=== PATIENT | male | born 1950 | race Caucasian/White ===

== ENCOUNTER → 2019-04-26 16:46 | Outpatient (CLI) | payer MEDICARE, BC, SELFPAY ==
--- NOTE | 2019-04-26 16:58 | XR_ITS ---
PROCEDURE: XR KNEE LT 3V CLINICAL INDICATION: PAIN Lateral knee pain COMPARISON: KNEE3L KNEE-3 VIEWS-LT from 08/28/2015 FINDINGS: There are moderate osteoarthritic changes greater at the medial compartment and patellofemoral joint. Bony spurring is present at the intercondylar region and tibial spine area. There is a loose body along the medial aspect of the lateral compartment measuring approximately 7 mm. Vascular calcification is noted. There is a small suprapatellar effusion. Other findings:None. IMPRESSION: Osteoarthritis with knee joint effusion bony spurring and small loose body Dictated by: Obed Bullock MD 04/26/2019 18:00 Electronically signed by Obed Bullock MD in [place] 04/26/2019 18:00
== END ==
PROVIDERS: PCP Family Medicine; Visit Provider Family Medicine
DX: S83.422A Sprain of lateral collateral ligament of left knee, initial encounter (principal)
CPT/HCPCS: 73562

== ENCOUNTER → 2019-05-22 09:32 | Outpatient (CLI) | payer MEDICARE, BC, SELFPAY ==
--- NOTE | 2019-05-22 09:37 | XR_ITS ---
PROCEDURE: XR KNEE LT 4V CLINICAL INDICATION: left knee pain Chronic knee pain COMPARISON: KNEE3L KNEE-3 VIEWS-LT from 08/28/2015 XR KNEE LT 3V from 04/26/2019 FINDINGS: No fracture or dislocation. No lytic or blastic change. There is normal mineralization. There are severe osteoarthritic changes of the medial compartment with mild osteoarthritic change of the lateral compartment and patellofemoral joint. Small suprapatellar effusion suspected. Other findings:None. IMPRESSION: Osteoarthritic changes most severe at the medial compartment Dictated by: Obed Bullock MD 05/22/2019 10:23 Electronically signed by Obed Bullock MD in [place] 05/22/2019 10:23
== END ==
PROVIDERS: PCP Family Medicine; Visit Provider Orthopaedic Surgery
DX: M25.562 Pain in left knee (principal)
CPT/HCPCS: 73564

== ENCOUNTER → 2020-05-31 13:24 | Outpatient (CLI) | payer MEDICARE, BC, SELFPAY ==
--- NOTE | 2020-05-31 13:29 | XR_ITS ---
PROCEDURE: XR KNEE LT 4V CLINICAL INDICATION: LT knee pain COMPARISON: CR KNEE3L KNEE-3 VIEWS-LT from 08/28/2015 CR XR KNEE LT 3V from 04/26/2019 CR XR KNEE LT 4V from 05/22/2019 FINDINGS: No fracture or dislocation. No lytic or blastic change. There is normal mineralization. There are moderate osteoarthritic changes of the medial compartment with mild osteoarthritis of the lateral compartment and patellofemoral joint. Suprapatellar effusion is present. There is some generalized vascular calcification. Other findings:None. IMPRESSION: Moderate osteoarthritic changes not significantly changed Dictated by: Obed Bullock MD 05/31/2020 15:25 Obed Bullock MD in [place] 05/31/2020 15:25
--- NOTE | 2020-05-31 14:15 | XR_ITS ---
PROCEDURE: XR KNEE RT 4V CLINICAL INDICATION: BL knee pain Right knee pain COMPARISON: CR KNEE3L KNEE-3 VIEWS-LT from 08/28/2015 CR XR KNEE LT 3V from 04/26/2019 CR XR KNEE LT 4V from 05/22/2019 CR XR KNEE LT 4V from 05/31/2020 FINDINGS: No fracture or dislocation. No lytic or blastic change. There is normal mineralization. There are utea-nu-bmeljiga osteoarthritic changes at the medial compartment and patellofemoral joint with mild osteoarthritis of the lateral compartment. Other findings:None. IMPRESSION: Gghy-zw-ioedpwmw osteoarthritis Dictated by: Obed Bullock MD 05/31/2020 15:20 Obed Bullock MD in [place] 05/31/2020 15:20
== END ==
PROVIDERS: PCP Family Medicine; Visit Provider Orthopaedic Surgery
DX: M17.12 Unilateral primary osteoarthritis, left knee (principal); M17.11 Unilateral primary osteoarthritis, right knee
CPT/HCPCS: 73564

== ENCOUNTER 2020-10-15 12:40 | Emergency (ER) | payer MEDICARE, BC, SELFPAY ==
[2020-10-15 12:42] VITALS: BP 181/81; PULSE 58; RESP 20; TEMP 36.9; O2SAT 96; BMI 40.6
--- NOTE | 2020-10-15 12:43 | ECG_ITS ---
APPROVED REPORT Exam: Resting ECG HR:58 bpm ECG Measurements Heart Rate 58 AXES MT 194 P 27 QRSd 80 QRS 23 QT 428 T 49 QTc 420 Conclusion Sinus bradycardia Otherwise normal ECG Electronically signed by : Sumit Smith, 10/15/2020 19:34:58
--- NOTE | 2020-10-15 12:46 | HMH.EDGENADL ---
ED Disposition Clinical Impression: Intraparenchymal hemorrhage of brain Hypertension Qualifiers: Hypertension type: unspecified Qualified Code(s): I10 - Essential (primary) hypertension Disposition: Xfer Short-Term Hosp Condition on Discharge: Good Referrals: Danis Sam MD [Primary Care Provider] - Time of Disposition: 13:37 - Critical Care Critical Care Time: Yes Attestation: On , the high probability of a clinically significant, sudden or life threatening deterioration of the following system(s) required my full and direct attention, intervention and personal management. The time I documented below is in addition to time spent performing reported procedures but includes the following listed in this critical care notation. Total Critical Care Time: 65 Vital system(s) involved:: Central Nervous System My critical care processes included: Assessment & monitoring of V/S, Initial and Re-exams, Data Review/Interpretation, Coordinating Care, Medication Orders and management, Documentation Medical Decision Making - Ja Inquiry Pt receiving controlled substance: No Vital Signs: 10/15/20 12:42 Temperature 98.4 F Temperature Source Oral Pulse Rate [Left Radial] 58 L Respiratory Rate 20 Blood Pressure [Right Arm] 181/81 H Blood Pressure Mean [Right Arm] 114 Blood Pressure Source [Right Arm] Automatic Cuff Blood Pressure Position [Right Arm] Sitting 02 Sat by Pulse Oximetry 96 Oxygen Delivery Method Room Air - Lab Data Lab results reviewed: Yes: I reviewed the patient's lab results. Lab Results 10/15/20 12:45: WBC 9.4, RBC 4.92, Hgb 14.6, Hct 45.9, MCV 93.4, MCH 29.7, MCHC 31.8, RDW 14.6, Plt Count 181, MPV 10.4, Neut % (Auto) 74.1, Lymph % (Auto) 16.4, Reeves % (Auto) 6.0, Eos % (Auto) 2.9, Baso % (Auto) 0.6, Neut # (Auto) 7.0, Lymph # (Auto) 1.6, Reeves # (Auto) 0.6, Eos # (Auto) 0.3, Baso # (Auto) 0.1 10/15/20 12:45: Sodium 144, Potassium 4.6, Chloride 104, Carbon Dioxide 32 H, Anion Gap 12.6, BUN 25 H, Creatinine 1.60 H, Estimated GFR 43 L, Est GFR ( Amer) 52 L, Glucose 148 H, Calcium 9.7, Total Bilirubin 0.4, AST 22, ALT 15, Alkaline Phosphatase 86, Total Protein 7.9, Albumin 4.6, Globulin 3.3 H, Albumin/Globulin Ratio 1.4 Result diagrams: 10/15/20 12:45 10/15/20 12:45 Orders (Tests/Meds): ED MEDICATIONS Discontinued Medications Generic Name Dose Route Start Last Admin Trade Name Sue PRN Reason Stop Dose Admin Hydralazine HCl 2.5 mg 10/15/20 13:26 10/15/20 13:27 Hydralazine 20mg/Ml Vial IV 10/15/20 13:27 2.5 mg ONCE ONE Administration ORDERS Category Date Time Status PT/INR [Prothrombin Time INR] Stat Lab 10/15/20 13:25 Received Urinalysis and Microscopic Stat Lab 10/15/20 12:55 Ordered - CT Data CT Scan: Head Time Received: 13:[address] Reviewed: Yes: I discussed the CT results w/the radiologist Preliminary Findings: Abnormal Findings Narrative: Left basal ganglia ICH Medical Decision Narrative: 70yo M evaluated for right lower extremity deficit. Patient in no acute distress on initial evaluation. He is noted to be hypertensive but denies any pain. Patient's presenting signs and symptoms are concerning for acute stroke. He is sent to CT scan for noncontrasted study. Dr. Huston calls with report of left basal ganglion spontaneous bleed. No midline shift, no involvement of the ventricles. Patient's blood pressure remains elevated 180s over 80. Case discussed with Dr. Kumari of neurosurgery at the [facility]. He accepts the patient in transfer. Helicopter has been arranged. Goal blood pressure is less than 140 systolic. General Adult HPI - General Stated complaint: Weakness Time Seen by Provider: 10/15/20 12:46 Mode of Arrival: Wheelchair - History of Present Illness HPI narrative: 70yo M presents the emergency department secondary to right lower extremity weakness and numbness. Patient reports he went to bed at 1230 at that
--- NOTE | 2020-10-15 12:53 | CT_ITS ---
PROCEDURE: CT HEAD/BRAIN WO CON CLINICAL INDICATION: RLE weakness/paresthesia COMPARISON: CT HDWO CT HEAD W/O CONTRAST from 09/05/2016 TECHNIQUE: Axial images obtained. All CT scans at the facility use one or more dose reduction, viz: automated exposure control, ma/kV adjustment per patient size (including targeted exams where dose is matched to indication, i.e. head), or iterative reconstruction technique. FINDINGS: Acute hemorrhage is present in the left thalamus extending into the basal ganglia basal ganglia and jessica radiata . This area of hemorrhage measures approximately 3.4 by 1.6 cm . Hemorrhage extends into the body the left lateral ventricle with some blood layering within the occipital horn of the left lateral ventricle. No midline shift is evident. No hydrocephalus. Unremarkable appearing calvarium. No mastoid effusion or sinus air-fluid level. IMPRESSION: Acute intraparenchymal hemorrhage involves the left basal ganglia extending into the thalamus and left jessica radiata also with extension into the body of the left lateral ventricle with a small amount blood layering in the occipital horn of the left lateral ventricle. Hypertensive hemorrhage with intraventricular extension is considered. Not typical for appearance for ruptured aneurysm however that entity is not excluded. Significant findings called to Dr. Lainez in the emergency room 10/15/2020 at 1:15 p.m. Dictated by: Obed Bullock MD 10/15/2020 13:24 Obed Bullock MD in [place] 10/15/2020 13:24
[2020-10-15 13:02] LABS: Basophils # 0.1 K/mm3 (0-0.2); Basophils % 0.6 % (0.1-2.0); Eosinophils # 0.3 K/mm3 (0.0-0.4); Eosinophils % 2.9 % (0.1-12.0); Hematocrit 45.9 % (42.0-52.0); Hemoglobin 14.6 g/dL (14.1-18.0); Lymphocytes # 1.6 K/mm3 (0.7-4.5); Lymphocytes % 16.4 % (10-50); Mean Corpuscular HGB Conc 31.8 g/dL (31.8-35.4); Mean Corpuscular Hemoglobin 29.7 pg (27.0-31.2); Mean Corpuscular Volume 93.4 fl (80-94); Mean Platelet Volume 10.4 fl (7.4-10.4); Monocytes # 0.6 K/mm3 (0.1-1.0); Neutrophils % 74.1 % (37.0-80.0); Platelet Count 181 K/mm3 (142-424); Red Blood Count 4.92 M/mm3 (4.60-6.20); Red Cell Distribution Width 14.6 % (11.5-17.5); White Blood Count 9.4 K/mm3 (4.8-10.8)
[2020-10-15 13:05] LABS: Chloride 104 mmol/L (98-107); Potassium 4.6 mmoL/L (3.5-5.1); Sodium 144 mmol/L (136-145)
[2020-10-15 13:08] LABS: Alanine Aminotransferase 15 U/L (12-78); Albumin Level 4.6 g/dl (3.5-5.0); Albumin/Globulin Ratio 1.4 (1.1-1.8); Alkaline Phosphatase 86 U/L (38-126); Anion Gap 12.6 mEq/L (5-15); Aspartate Amino Transferase 22 U/L (17-59); Bilirubin,Total 0.4 mg/dl (0.2-1.3); Blood Urea Nitrogen 25 mg/dl (9-20); Calcium 9.7 mg/dl (8.4-10.2); Carbon Dioxide 32 mmol/L (22.0-30.0); Estimated Glomerular Filt Rate 43 ml/min (>60); GFR (African American) 52 ML/MIN (>60); Globulin 3.3 g/dL (1.3-3.2); Glucose 148 mg/dl (74-100); Total Protein,Serum 7.9 g/dl (6.3-8.2)
--- NOTE | 2020-10-15 13:27 | PC.NURSE ---
MD Lainez consulting with at this time regarding critical ct findings.
[2020-10-15 13:46] LABS: INR 0.97 (0.9-1.1); Prothrombin Time 11.5 seconds (9.4-11.8)
[2020-10-15 14:01] VITALS: BP 164/81; PULSE 58; RESP 20; TEMP 36.7; O2SAT 96
== END 2020-10-15 14:01 | disposition short-term general hospital (02) ==
PROVIDERS: Emergency Provider Family Medicine; PCP Family Medicine
DX: I61.9 Nontraumatic intracerebral hemorrhage, unspecified (principal); I10 Essential (primary) hypertension; I48.91 Unspecified atrial fibrillation; E10.65 Type 1 diabetes mellitus with hyperglycemia; E78.5 Hyperlipidemia, unspecified; F41.9 Anxiety disorder, unspecified; Z87.442 Personal history of urinary calculi; Z79.899 Other long term (current) drug therapy
CPT/HCPCS: 70450; 80053; 85025; 85610; 93005; 96374; 96375; 99283

== ENCOUNTER → 2020-12-12 13:08 | Outpatient (CLI) | payer MEDICARE, BC, SELFPAY ==
--- NOTE | 2020-12-12 13:14 | XR_ITS ---
PROCEDURE: XR KNEE LT 4V CLINICAL INDICATION: LT knee pain COMPARISON: CR XR KNEE LT 3V from 04/26/2019 CR XR KNEE LT 4V from 05/22/2019 CR XR KNEE LT 4V from 05/31/2020 CR XR KNEE RT 4V from 05/31/2020 FINDINGS: Tricompartmental degenerative changes of the knee joint are noted with the subchondral sclerosis, loss of joint space, predominantly in the medial compartment and osteophyte formation. Small suprapatellar joint effusion. No acute fractures or dislocations. Prominence of the intercondylar tubercles are noted. Bone density is normal. No significant soft tissue abnormality is noted. IMPRESSION: No acute fractures or dislocations. Tricompartmental degenerative changes. Suprapatellar joint effusion. Dictated by: Daniela Black 12/12/2020 15:00 Daniela Black in [place] 12/12/2020 15:00
== END ==
PROVIDERS: PCP Family Medicine; Visit Provider Orthopaedic Surgery
DX: M25.562 Pain in left knee (principal)
CPT/HCPCS: 73564

== ENCOUNTER 2021-05-02 12:03 | Emergency (ER) | payer MEDICARE, BC, SELFPAY ==
[2021-05-02 12:04] VITALS: BP 140/74; PULSE 62; RESP 18; TEMP 36.7; O2SAT 94; BMI 38.9
[2021-05-02 12:19] VITALS: BP 140/74; PULSE 61; RESP 18; O2SAT 95
--- NOTE | 2021-05-02 12:28 | XR_ITS ---
PROCEDURE: XR CHEST 2V CLINICAL HISTORY: possibly swallowed tooth COMPARISON: CR CXR CHEST(2 VIEWS-NOT PORTABLE) from 02/28/2016 CR CXR CHEST(2 VIEWS-NOT PORTABLE) from 09/05/2016 CR XR SOFT TISSUE NECK from 05/02/2021 FINDINGS: Cardiomegaly without failure. There has been a prior median sternotomy. There are low lung volumes with increased density along the left heart border which may be related to the poor inspiration. No definite radiopaque foreign body evident that would represent a tooth. Very slight increased density of the left and superior aspect the T9 vertebral body. This is not as dense as 1 would expect for a to the specially if it contained amalgam. No acute bony abnormalities. IMPRESSION: No definite radiopaque foreign body that would represent a tooth. Cardiomegaly with poor inspiration. Dictated by: Obed Bullock MD 05/02/2021 13:34 Obed Bullock MD in [place] 05/02/2021 13:34
--- NOTE | 2021-05-02 12:28 | XR_ITS ---
PROCEDURE: XR SOFT TISSUE NECK CLINICAL INDICATION: Possibly swallowed tooth COMPARISON: CT CT HEAD/BRAIN WO CON from 10/15/2020 FINDINGS: No radiopaque foreign body is evident. Calcification is present at the posterior horn of the thyroid cartilage. There is also calcification overlying the base of the tongue on the lateral view possibly within the carotid arteries versus calcified crypts within the lingual tonsils. Degenerative changes are present in the cervical spine.. IMPRESSION: No radiopaque foreign body evident. Dictated by: Obed Bullock MD 05/02/2021 13:04 Obed Bullock MD in [place] 05/02/2021 13:04
--- NOTE | 2021-05-02 12:30 | PC.NURSE ---
Notified RAD of xray orders
--- NOTE | 2021-05-02 12:39 | PC.NURSE ---
Pt to RAD
--- NOTE | 2021-05-02 12:39 | PC.NURSE ---
pt taken by rad
--- NOTE | 2021-05-02 14:12 | HMH.EDGENADL ---
ED Disposition Clinical Impression: Esophageal abrasion Qualifiers: Encounter type: initial encounter Qualified Code(s): S27.818A - Other injury of esophagus (thoracic part), initial encounter Disposition: Home, Self-Care Condition on Discharge: Good Instructions: DI for Acute Pain -- Adult Additional Instructions: see pcp and recheck if needed Referrals: Maria Fernanda Kohler APRN [Primary Care Provider] - - Critical Care Critical Care Time: No Attestation: On 05/02/21, the high probability of a clinically significant, sudden or life threatening deterioration of the following system(s) required my full and direct attention, intervention and personal management. The time I documented below is in addition to time spent performing reported procedures but includes the following listed in this critical care notation. Medical Decision Making - Medical Records Medical records reviewed: Yes: I reviewed the patient's medical records. - Ja Inquiry Pt receiving controlled substance: No Vital Signs: 05/02/21 12:04 05/02/21 12:19 Temperature 98.1 F Temperature Source Oral Pulse Rate 61 Pulse Rate [Left Radial] 62 Respiratory Rate 18 18 Blood Pressure 140/74 Blood Pressure [Left Arm] 140/74 Blood Pressure Mean 92 Blood Pressure Mean [Left Arm] 96 Blood Pressure Source [Left Arm] Automatic Cuff Blood Pressure Position [Left Arm] Sitting 02 Sat by Pulse Oximetry 94 L 95 Oxygen Delivery Method Room Air - Radiology Data #1 Image(s): Chest, Other (soft -tissue neck) Image Reviewed: Yes I have reviewed radiologist's interpretation Preliminary Findings: Normal/NAD Medical Decision Narrative: no def fb seen and stable exam General Adult HPI - General Chief complaint: PAIN Stated complaint: chest XR, congestion Time Seen by Provider: 05/02/21 13:00 Mode of Arrival: Wheelchair Source of Information: Patient Limitations: No Limitations Description of Symptoms (Recalled from ER Triage Doc. by RN): Pt referred to ED for a CXR after calling PCP. Pt states that while eating last night, he swallowed his tooth, that is part of a partial plate. Pt speaking without difficulty, denies SOA, swallows liquids without difficulty. Pt states that he feels as if the tooth is stuck or he has a scratch when he swallows. - History of Present Illness HPI narrative: possible fb in neck Onset (ago): hour(s) Location: neck Severity: moderate Associated symptoms: denies other symptoms Treatments prior to arrival: none - Related Data Home Medications Medication Instructions Recorded Confirmed allopurinol 100 mg tablet 100 mg PO DAILY 05/22/19 12/12/20 amlodipine 5 mg tablet 5 mg PO DAILY 05/22/19 12/12/20 apixaban 5 mg tablet 5 mg PO BID 05/22/19 12/12/20 aspirin 81 mg tablet,delayed 81 mg PO DAILY 05/22/19 12/12/20 release carvedilol 25 mg tablet 25 mg PO BID 05/22/19 12/12/20 chlorthalidone 25 mg tablet 25 mg PO DAILY 05/22/19 12/12/20 clotrimazole-betamethasone 1 1 applic TOPICAL BID 05/22/19 12/12/20 %-0.05 % topical cream dutasteride 0.5 mg-tamsulosin ER 1 cap PO DAILY 05/22/19 12/12/20 0.4 mg capsule ext.release 24hr mphas glimepiride 2 mg tablet 2 mg PO DAILY 05/22/19 12/12/20 metformin 850 mg tablet 850 mg PO DAILY 05/22/19 12/12/20 montelukast 10 mg tablet 10 mg PO QPM 05/22/19 12/12/20 pregabalin 75 mg capsule 75 mg PO BID 05/22/19 12/12/20 rosuvastatin 20 mg tablet 20 mg PO DAILY 05/22/19 12/12/20 sertraline 50 mg tablet 50 mg PO DAILY 05/22/19 12/12/20 Allergies Allergy/AdvReac Type Severity Reaction Status Date / Time lisinopril [LISINOPRIL] AdvReac Unknown COUGH Verified 12/12/20 13:59 [facility] History - Hepatitis A Screen Drug use history?: No High risk sexual behaviors?: No History of sexually transmitted infection?: No Currently employed?: No Childcare worker?: No Do you have indoor plumbing?: Yes Do you have electricity?: Yes Attestation statement:: Ariela salinas
[2021-05-02 14:42] VITALS: BP 140/74; PULSE 61; RESP 18; TEMP 36.7; O2SAT 95
== END 2021-05-02 14:42 | disposition home or self-care (01) ==
PROVIDERS: Emergency Provider Emergency Medicine; PCP Nurse Practitioner Family
DX: S27.818A Other injury of esophagus (thoracic part), initial encounter (principal)
CPT/HCPCS: 70360; 71046; 99282

== ENCOUNTER 2021-05-05 13:11 | Day surgery (SDC) | payer MEDICARE, BC, SELFPAY ==
[2021-05-05] VITALS (15 sets, daily range): BP systolic 126–146; BP diastolic 61–89; PULSE 53–91; RESP 14–20; TEMP 36.1–36.8; O2SAT 90–95; BMI 38.9
--- NOTE | 2021-05-05 13:52 | HMH.EDGENADL ---
ED Disposition Clinical Impression: Esophageal foreign body Qualifiers: Encounter type: subsequent encounter Qualified Code(s): T18.108D - Unspecified foreign body in esophagus causing other injury, subsequent encounter Disposition: Still a Patient Condition on Discharge: Good Instructions: DI for Skin Abscess Additional Instructions: Per Dr. De Jesus to following procedure Referrals: Danis Sam MD [Primary Care Provider] - (1-2 days) Time of Disposition: 16:17 - Critical Care Critical Care Time: No Attestation: On 05/05/21, the high probability of a clinically significant, sudden or life threatening deterioration of the following system(s) required my full and direct attention, intervention and personal management. The time I documented below is in addition to time spent performing reported procedures but includes the following listed in this critical care notation. Medical Decision Making - Medical Records Medical records reviewed: Yes: I reviewed the patient's medical records. - Ja Inquiry Pt receiving controlled substance: No Vital Signs: 05/05/21 13:14 05/05/21 13:30 05/05/21 14:00 Temperature 98.3 F Temperature Source Oral Pulse Rate 56 L 53 L Pulse Rate [Left Radial] 60 Respiratory Rate 20 16 16 Blood Pressure 129/64 131/63 Blood Pressure [Right Arm] 130/63 Blood Pressure Mean 85 Blood Pressure Mean [Right Arm] 85 Blood Pressure Source [Right Arm] Automatic Cuff Blood Pressure Position [Right Arm] Sitting 02 Sat by Pulse Oximetry 92 L 90 L 91 L Oxygen Delivery Method Room Air Orders (Tests/Meds): ORDERS Category Date Time Status FL upper GI & esophagus w/air Stat Fluoro 05/05/21 15:12 Ordered Medical Decision Narrative: 70yo M evaluated for ongoing subxiphoid pain after he swallowed a tooth on May 02. I reviewed the imaging reports from his previous evaluation. There is no acute finding at that time. No reason to repeat x-rays as tooth or other foreign object did not show up at that time. Case discussed with Dr. De Jesus who request fluoroscopy upper GI series be completed to figure out if this patient needs to go for upper endoscopy. Dr. Bullock called was concerned that the patient did in fact swallowed tooth, it would be masked by contrast. Recommends a CT of the chest without contrast. CT did not show any foreign object, tooth, other obstruction. Case discussed again with Dr. Bullock who is okay with proceeding with a GI series at this time. Dr. Bullock called after the GI series completed to inform you there was in fact a foreign object in the patient's distal esophagus. I called Dr. De Jesus to discuss these findings. Given this object is been in the patient's esophagus for 3 days, Dr. De Jesus plans to proceed with emergent EGD. General Adult HPI - General Chief complaint: Skin/Abscess/Foreign Body Stated complaint: abd pain,fb10 stuck, Time Seen by Provider: 05/05/21 13:30 Mode of Arrival: Wheelchair Limitations: No Limitations Description of Symptoms (Recalled from ER Triage Doc. by RN): c/o belly pain after swallowing a partial tooth on Wednesday believes it is lodged in his abdomen - History of Present Illness HPI narrative: 70yo M presents to the emergency department with concern for having swallowed his tooth. Patient was evaluated on May 02 with the same concern. X-rays were obtained but no foreign object was identified. Patient reports he has been largely intolerant to solid intake since that time. It makes him nauseated he vomits. He reports he is tolerating thin liquids and can take his medications but has to take them 1 or 2 at a time. He still has a sensation of a foreign object in his distal esophagus/upper stomach. Never undergone endoscopy previously. - Related Data Home Medications Medication Instructions Recorded Confirmed allopurinol 100 mg tablet 100 mg PO DAILY 05/22/19 12/12/20 amlodipine 5 mg tablet 5 mg PO DAILY 05/22
--- NOTE | 2021-05-05 13:56 | PC.NURSE ---
speaking with Dr Gardner at this time.
--- NOTE | 2021-05-05 14:01 | PC.NURSE ---
Notified rad of Fluro Upper GI order
--- NOTE | 2021-05-05 14:18 | CT_ITS ---
PROCEDURE: CT CHEST WO CON CLINICAL INDICATION: fb Foreign body evaluation COMPARISON: No exams were available for comparison TECHNIQUE: Axial images obtained with sagittal and coronal reformats. All CT scans at the facility use one or more dose reduction, viz: automated exposure control, ma/kV adjustment per patient size (including targeted exams where dose is matched to indication, i.e. head), or iterative reconstruction technique. FINDINGS: Unenhanced exam is obtained of the chest and upper abdomen. No radiopaque esophageal foreign body is evident.. There is slight increased density within the lumen the distal esophagus which could be due to some residual bismuth containing medication or even acute hemorrhage. There is some mild thickening of the esophagus at this region. No pneumomediastinum. No there is some minimal stranding of the mediastinal fat at this area of thickening and central hyperdensity. There has been a prior CABG. Severe coronary artery calcification is noted. There is elevation of the right hemidiaphragm. There is mild right basilar atelectasis. Minimal atelectatic changes are present in the lingula. There are trace bilateral effusions Upper abdominal images demonstrates bilateral renal cysts. There is a hyperdense nodule involving the right kidney medially and could represent hemorrhagic or proteinaceous cyst measuring 18 mm with a density of 42 Hounsfield units. Cholelithiasis suspected. IMPRESSION: 1. No radiopaque foreign body apparent within the esophagus. 2. There is some hyperdensity within the lumen which conforms to the lumen in the distal esophagus just proximal to the GE junction which could represent hemorrhage. There is some mild esophageal thickening at this region and minimal stranding of the mediastinal fat at this area suggesting underlying inflammation. No pneumomediastinum apparent. 3. Bilateral renal cysts. A 10 mm hyperdense nodule of the right kidney indeterminate. Nonemergent ultrasound may determine cystic or solid nature. Dictated by: Obed Bullock MD 05/05/2021 14:58 Obed Bullock MD in [place] 05/05/2021 14:58
--- NOTE | 2021-05-05 15:12 | FL_ITS ---
PROCEDURE: FL UPPER GI ESOPHAGUS W/AIR CLINICAL INDICATION: Foreign body evaluation COMPARISON: No exams were available for comparison FINDINGS: There is a persistent filling defect within the distal aspect of the esophagus 6 cm proximal to the GE junction. This filling defect measures 4 cm longitudinal and approximately 15 mm in thickness somewhat C-shaped and could represent a dental apparatus which was swallowed. There was no evidence of extravasation of contrast and no obstruction. There is a tiny hiatal hernia. The stomach and duodenum have an unremarkable appearance. IMPRESSION: Unusual C-shaped filling defect within the distal esophagus which could represent a foreign body such as a dental apparatus. This could also be due to impacted food. No extravasation. No esophageal obstruction. Dictated by: Obed Bullock MD 05/05/2021 16:09 Obed Bullock MD in [place] 05/05/2021 16:09
--- NOTE | 2021-05-05 16:10 | PC.NURSE ---
DR SCHMITZ IN WITH PT , HE IS TAKING HIM FOR EMERGENT EGD
--- NOTE | 2021-05-05 16:16 | HMH.GSHP ---
HPI HPI: Patient is a 70-year-old male. He states that about 3 or 4 days ago he had possibly accidentally swallowed a dental partial plate. He was seen and evaluated in the emergency department on 05/02/2021. He underwent plain imaging including plain x-ray of the neck and chest. This was unremarkable for any calcified or metallic object. Patient was managed as an outpatient. He presented back to the emergency department today with ongoing complaints of occasional indigestion pains and difficulty swallowing. Surgery was contacted. Recommendations were for more specific imaging including possible upper GI series. After contact with radiology he underwent CT scan of the chest initially. There was noted to be a hyperdensity several centimeters proximal to the gastroesophageal junction which is felt to be possibly hemorrhage. This was followed with upper GI series. This reveals a filling defect at this location measuring approximately 4 cm. This information was relayed to surgery and arrangements were made for emergent upper endoscopy. [facility] History I have reviewed the patient's past medical history: Yes Medical History: Reports:: Anxiety, Atrial Fibrillation, Diabetes Mellitus Type 1, Hypertension, Kidney Stones, Transient Ischemic Attacks (TIA) *Have you ever received a pneumonia vaccine?: No *Have you received a flu vaccine this season?: No Other Medical History: Reports: Arthritis Laterality Cases: Bilateral: Other Other Surgeries: Yes: Cardiac Catheterization, Cardiac Surgery - *Social History Smoking Status: Never smoker Alcohol Intake: never *Occupational Status:: retired *Travel in the last 8 weeks: None - Psychiatric History Pschychiatric History:: Reports:: Anxiety Family Hx:: No significant family history Review of Systems - Review of Systems Review of systems:: pertinent systems reviewed and negative unless documented below Meds Home Medications Medication Instructions Recorded Confirmed Type allopurinol 100 mg tablet 100 mg PO DAILY 05/22/19 12/12/20 History amlodipine 5 mg tablet 5 mg PO DAILY 05/22/19 12/12/20 History apixaban 5 mg tablet 5 mg PO BID 05/22/19 12/12/20 History aspirin 81 mg tablet,delayed 81 mg PO DAILY 05/22/19 12/12/20 History release carvedilol 25 mg tablet 25 mg PO BID 05/22/19 12/12/20 History chlorthalidone 25 mg tablet 25 mg PO DAILY 05/22/19 12/12/20 History clotrimazole-betamethasone 1 1 applic TOPICAL BID 05/22/19 12/12/20 History %-0.05 % topical cream dutasteride 0.5 mg-tamsulosin ER 1 cap PO DAILY 05/22/19 12/12/20 History 0.4 mg capsule ext.release 24hr mphas glimepiride 2 mg tablet 2 mg PO DAILY 05/22/19 12/12/20 History metformin 850 mg tablet 850 mg PO DAILY 05/22/19 12/12/20 History montelukast 10 mg tablet 10 mg PO QPM 05/22/19 12/12/20 History pregabalin 75 mg capsule 75 mg PO BID 05/22/19 12/12/20 History rosuvastatin 20 mg tablet 20 mg PO DAILY 05/22/19 12/12/20 History sertraline 50 mg tablet 50 mg PO DAILY 05/22/19 12/12/20 History Allergies Allergy/AdvReac Type Severity Reaction Status Date / Time lisinopril [LISINOPRIL] AdvReac Unknown COUGH Verified 12/12/20 13:59 Exam Vital signs and Labs for Last 24 Hours: Temp Pulse Resp BP Pulse Ox 98.3 F 53 L 16 131/63 91 L 05/05/21 13:14 05/05/21 14:00 05/05/21 14:00 05/05/21 14:00 05/05/21 14:00 I & O for Last 24 hours: Intake & Output 05/03/21 05/04/21 05/05/21 05/06/21 11:59 11:59 11:59 11:59 Weight 295 lb - Constitutional no acute distress - *Routine HEENT Exam Head: Present: normocephalic Eye: Present: EOMI, PERRL ENT: Present: mucous membranes moist - *Routine Neck Exam Present: supple. Absent: lymphadenopathy - *Routine Respiratory Exam Present: CTA bilaterally - *Routine Cardiovascular Exam Present: RRR - *Routine Abdominal Exam Present: soft, normoactive bowel sounds. Absent: tenderness - *Routine Rectal Exam Rectal:: deferred - *
--- NOTE | 2021-05-05 16:23 | PC.NURSE ---
1604: Spoke to DR. De Jesus. He requested I call the OR team in for an emergent EGD. 1605: Spoke to Mckenna RN, 1606: Spoke to Mouna, chemical plant technical director 1608: Spoke to BERNIE Yost.
--- NOTE | 2021-05-05 16:24 | PC.NURSE ---
Anesthesia and nurse at bedside
--- NOTE | 2021-05-05 16:40 | P.PN_ITS ---
[facility] Anesthesia Checklist - Patient Identification Patient Identification: Arm Band - Structural Data Admitted From: Emergency Dept Planned Operative Procedure/s: EGD Consent for Planned Operative Procedure(s) Verified: Yes - NPO Status Verified Time NPO: 10:00 - Airway Assessment C-Spine Mobility Assessed: Yes TMJ Mobility Assessed: Yes Dentition: Poor Dentition - Neurological Assessment Level of Consciousness: Awake Hx Seizures: No Numbness or tingling in extremities: No - Anesthesia Plan Anesthesia Risk discussed: Yes Anesthesia Plan: Verified ASA Class: III Anesthesia Type: MAC [facility] History I have reviewed the patient's past medical history: Yes Medical History: Reports:: Anxiety, Atrial Fibrillation, Diabetes Mellitus Type 1, Hypertension, Kidney Stones, Transient Ischemic Attacks (TIA) *Have you ever received a pneumonia vaccine?: No *Have you received a flu vaccine this season?: No Other Medical History: Reports: Arthritis Anesthesia experience/problems:: None Laterality Cases: Bilateral: Other Other Surgeries: Yes: Cardiac Catheterization, Cardiac Surgery - *Social History Smoking Status: Never smoker Alcohol Intake: never Substance Use Type: denies use *Occupational Status:: retired *Travel in the last 8 weeks: None - Psychiatric History Pschychiatric History:: Reports:: Anxiety Family Hx:: No significant family history
--- NOTE | 2021-05-05 19:02 | P.PN_ITS ---
[facility] Anesthesia Record Part I Intake, IV Amount: 900 Estimated blood loss (mL): 5 Urine output (mL): 0 Blood Pressure: 144/82 SaO2: 90 Pulse Rate: 72 Respiratory Rate: 16 Temperature: 97.8 F Patient is:: Drowsy, Oral/Nasal airway Stable to PACU at:: 18:50
[2021-05-05 19:07] LABS: POC Glucose,Bedside 130 (70-110)
--- NOTE | 2021-05-05 19:15 | HMH.SCOPE ---
- Procedure: Date: 05/05/21 Patient Date of :: 1950 Procedure Performed:: Esophagogastroduodenoscopy Indications:: Patient is a 70-year-old male. He has a history of diabetes and atrial fibrillation on Eliquis. He states in the evening of 05/01/21 he had possibly accidentally swallowed a dental partial plate. He was seen and evaluated in the emergency department on 05/02/2021. He underwent imaging including plain x-ray of the neck and chest. This was unremarkable for any radiopaque foreign body . Patient was managed as an outpatient. He presented back to the emergency department today with ongoing complaints of occasional indigestion pains and dysphagia type symptoms. Surgery was contacted and it was relayed that the patient swallowed a tooth . Recommendations were for more sensitive imaging including possible upper GI series. After contact with radiology he underwent CT scan of the chest initially. There was noted to be a hyperdensity several centimeters proximal to the gastroesophageal junction which is felt to be possibly hemorrhage. There was some minor esophageal thickening at this location. No evidence of any definite perforation or mediastinal air. This was followed with upper GI series. This reveals a filling defect at this location measuring approximately 4 cm. This information was relayed to surgery and arrangements were made for emergent upper endoscopy. Performing Provider:: Marc De Jesus MD Referring Provider:: Dr. Lainez Sedation:: MAC sedation followed by general anesthesia Procedure:: Consent was obtained and patient was taken emergently to the endoscopy procedure room. He was positioned in lateral decubitus position. Adequate intravenous sedation was achieved. Olympus endoscope was inserted via the oropharynx. Esophagus was cannulated. Foreign body was encountered in the distal esophagus between approximately 35 and 37 cm from the incisors. The endoscope was able to be advanced beyond this and gastroesophageal junction was encountered at approximately 40 cm from the incisors. The endoscope was withdrawn into the distal esophagus where the foreign body was encountered. Numerous attempts were made to grasp the object. The small cutting snare was used initially without success. Attempt was made to grasp the object and retrieve it with the Mason net without success. Grasping forceps were used. These were unsuccessful. Attempt was made for inflation of pneumatic balloon distal to the impacted foreign body with retrieval. However this was unsuccessful. Ultimately using the large snare, 13 mm, the foreign body was able to be grasped firmly. However, it could not be safely withdrawn from the esophagus. Several attempts were made to manipulate the foreign body and regrasp this with the snare. This was unsuccessful. After several hours with lack of success on retrieving the foreign body consideration was being given for possible rigid esophagoscopy under general anesthesia. Patient was taken to the operating room and placed under general anesthesia via endotracheal tube. Limited attempt was made to insert a rigid esophagoscope. However, given the patient's body anatomy it was felt that this was unsafe under the circumstances to advance. After unsuccessful attempt at retrieval of foreign body it was determined that the patient would best be served by transfer to tertiary facility for ENT and potentially thoracic surgery involvement. After the completion of the procedure [facility] was contacted and the case was discussed with the transfer service physicians. It was agreed upon to accept him in transfer to the [facility] emergency department with ENT and thoracic surgery involvement. Findings:: Slightly impacted irregular foreign body distal esophagus approximately 35 cm from the incisors Recommendations:: Patient is being transferred to [facility] emergency d
--- NOTE | 2021-05-05 19:25 | SUR.PHASEI ---
1906: Dr. De Jesus informed me he spoke to and patient is accepted per Dr. Mccoy. Dr. De Jesus stated to call ED charge and give report once patient has been recovered. [phone]. 1910:Dr. De Jesus speaking with updating her on plan of care. 1924: 100% NRB removed, patient placed on 5L/NC. oral airway removed. O2 sat 5l/nc. Patient able to follow commands.
--- NOTE | 2021-05-05 19:34 | SUR.PHASEI ---
FSBS: 174
[2021-05-05 19:41] LABS: POC Glucose,Bedside 174 (70-110)
--- NOTE | 2021-05-05 19:47 | SUR.PHASEI ---
REPORT GIVEN TO KRYSTLE GILMORE, ED CHARGE NURSE. [facility] HAS BEEN NOTIFIED OF TRANSFER.
--- NOTE | 2021-05-05 20:17 | SUR.PHASEI ---
[facility] HERE TO TRANSPORT PATIENT.
[2021-05-05 20:22] LABS: Microscopic, Urine URINE MICROSCOPIC (MICROSCOPIC)
[2021-05-05 20:24] LABS: Appearance,Urine CLEAR (Clear); Bilirubin,Urine Negative (Negative); Blood, Urine Negative (Negative); Color,Urine YELLOW (Yellow); Glucose,Urine (UA) Negative (Negative); Ketones,Urine Negative (Negative); Leukocyte Esterase,Urine Negative (Negative); Nitrate,Urine Negative (Negative); PH,Urine 5.5 (5.0-8.5); Protein,Urine Negative (Negative); Urobilinogen,Urine 0.2 EU/dl (0.2)
[2021-05-05 20:45] LABS: Bacteria,Urine Trace /lpf; RBC,Urine Occasional #/hpf (0-3)
--- NOTE | 2021-05-05 21:36 | SUR.OPER ---
1800- pt into the OR per .
== END 2021-05-05 16:18 ==
LOC: ER 16:18 → SDC 05-07 08:39
PROVIDERS: Emergency Provider Family Medicine; PCP Family Medicine; Visit Provider Surgery
PROC: 0DJ08ZZ Inspection of Upper Intestinal Tract, Via Natural or Artificial Opening Endoscopic (ICD-10-PCS; CPT 43235; principal; 2021-05-05 04:35)
DX: T18.108S Unspecified foreign body in esophagus causing other injury, sequela (principal); E10.9 Type 1 diabetes mellitus without complications; I48.91 Unspecified atrial fibrillation; F41.9 Anxiety disorder, unspecified; I10 Essential (primary) hypertension; M19.90 Unspecified osteoarthritis, unspecified site; Z86.73 Personal history of transient ischemic attack (TIA), and cerebral infarction without residual deficits; Z79.01 Long term (current) use of anticoagulants; Z88.8 Allergy status to other drugs, medicaments and biological substances; Z79.899 Other long term (current) drug therapy; Z79.82 Long term (current) use of aspirin; Z79.84 Long term (current) use of oral hypoglycemic drugs
CPT/HCPCS: 43194; 71250; 74221; 74246; 81001; 82962; 99284; C1726; J0330; J2704

== ENCOUNTER → 2021-05-23 10:39 | Outpatient (CLI) | payer MEDICARE, BC, SELFPAY | PROVIDERS: Visit Provider Nurse Practitioner | DX: Z20.822 Contact with and (suspected) exposure to COVID-19 (principal) | CPT/HCPCS: C9803; U0003; U0005 ==

== ENCOUNTER → 2022-02-04 13:11 | Outpatient (CLI) | payer MEDICARE, BC, SELFPAY ==
--- NOTE | 2022-02-04 13:23 | US_ITS ---
FINAL REPORT TECHNIQUE: Ultrasound images of the testicles were obtained bilaterally. Color Doppler images were obtained. CLINICAL HISTORY: TESTICULAR ANOMALY FINDINGS: The right testicle measures 2.17 x 2.85 x 2.38 cm. The left testicle measures 2.56 x 3.32 x 2.65 cm. Increased blood flow is seen to the left testicle, somewhat heterogeneous. No well-defined mass is identified. There are moderate right and large left hydroceles. There is a 6 mm cyst in the right epididymal head. IMPRESSION: Findings consistent with left orchitis. Bilateral hydroceles, left greater than right. Cyst in the right epididymal head. Reviewed, Interpreted and Dictated by Marc Resendiz III, MD Transcribed by Gena Orantes Authenticated and . [facility]
== END ==
PROVIDERS: PCP Family Medicine; Visit Provider Family Medicine
DX: Q55.29 Other congenital malformations of testis and scrotum (principal)
CPT/HCPCS: 76870

== ENCOUNTER → 2022-03-16 13:40 | Outpatient (CLI) | payer MEDICARE, BC, SELFPAY | PROVIDERS: PCP Family Medicine; Visit Provider Family Medicine | DX: G47.33 Obstructive sleep apnea (adult) (pediatric) (principal); R06.83 Snoring | CPT/HCPCS: G0399 ==

== ENCOUNTER → 2022-04-30 12:52 | Outpatient (CLI) | payer MEDICARE, BC, SELFPAY ==
--- NOTE | 2022-04-30 12:57 | US_ITS ---
FINAL REPORT TECHNIQUE: Sonographic images were obtained of the retroperitoneum. CLINICAL HISTORY: STAGE 3 CKD FINDINGS: The right kidney measures 10.4 cm. The left kidney measures 12.8 cm. There is moderate global parenchymal atrophy and parenchymal echogenicity compatible with medical renal disease. Bilateral simple renal cysts measuring up to 4 cm on the left. The spleen measures 12.4 cm. IMPRESSION: Simple bilateral renal cysts. Renal atrophy and echogenicity compatible with medical renal disease. Reviewed, Interpreted and Dictated by Danis López MD Transcribed by Bertrand Lloyd Authenticated and [facility]
== END ==
PROVIDERS: PCP Family Medicine; Visit Provider Nurse Practitioner Family
DX: N18.32 Chronic kidney disease, stage 3b (principal)
CPT/HCPCS: 76770

== ENCOUNTER → 2022-06-09 09:21 | Outpatient (CLI) | payer MEDICARE, BC, SELFPAY ==
--- NOTE | 2022-06-09 09:25 | XR_ITS ---
FINAL REPORT TECHNIQUE: Chest PA & Lateral CLINICAL HISTORY: hypoxemia COMPARISON: 05/12/2021 FINDINGS: 2 views of the chest were performed. Sternotomy wires are present. There is mild cardiomegaly. The mediastinum is within normal limits. There are mild chronic changes at the lung bases. There are no pleural effusions. There is no pneumothorax. The bony thorax appears intact. IMPRESSION: No acute cardiopulmonary process. Reviewed, Interpreted and Dictated by Tito Tate MD Transcribed by Jaqueline Baltazar Authenticated and [facility]
[2022-06-09 10:25] VITALS: PULSE 60; PULSE 68
== END ==
PROVIDERS: PCP Family Medicine; Visit Provider Specialist
DX: G47.34 Idiopathic sleep related nonobstructive alveolar hypoventilation (principal)
CPT/HCPCS: 71046; 94060; 94618; 94640; 94727; 94729

== ENCOUNTER → 2022-06-16 20:01 | Outpatient (CLI) | payer MEDICARE, BC, SELFPAY | PROVIDERS: PCP Family Medicine; Visit Provider Nurse Practitioner Family | DX: G47.33 Obstructive sleep apnea (adult) (pediatric) (principal); R09.02 Hypoxemia; R06.83 Snoring | CPT/HCPCS: 95811 ==

== ENCOUNTER → 2022-06-22 12:53 | Outpatient (POV) | payer MEDICARE, BC, SELFPAY | PROVIDERS: Visit Provider Internal Medicine Nephrology | DX: Z00.00 Encounter for general adult medical examination without abnormal findings (principal) ==

== ENCOUNTER → 2022-06-22 14:08 | Outpatient (CLI) | payer MEDICARE, BC, SELFPAY ==
[2022-06-22 14:16] LABS: Microscopic, Urine URINE MICROSCOPIC (MICROSCOPIC)
[2022-06-22 15:00] LABS: Hematocrit 42.8 % (42.0-52.0); Hemoglobin 13.6 g/dL (14.1-18.0); Mean Corpuscular HGB Conc 31.8 g/dL (31.8-35.4); Mean Corpuscular Hemoglobin 28.4 pg (27.0-31.2); Mean Corpuscular Volume 89.3 fl (80-94); Platelet Count 207 K/mm3 (142-424); Red Blood Count 4.79 M/mm3 (4.60-6.20); Red Cell Distribution Width 14.8 % (11.5-17.5); White Blood Count 8.8 K/mm3 (4.8-10.8)
[2022-06-22 15:42] LABS: Creatinine,Urine Random 75 mg/dL (Not Estab.)
[2022-06-22 17:12] LABS: Appearance,Urine CLEAR (Clear); Bilirubin,Urine Negative (Negative); Blood, Urine Negative (Negative); Color,Urine YELLOW (Yellow); Glucose,Urine (UA) Negative (Negative); Ketones,Urine Negative (Negative); Leukocyte Esterase,Urine Negative (Negative); Nitrate,Urine Negative (Negative); Protein,Urine Negative (Negative); Specific Gravity, Urine 1.025 (1.005-1.030); Urobilinogen,Urine 0.2 EU/dl (0.2)
[2022-06-22 17:30] LABS: Albumin Level 4.8 g/dl (3.5-5.0); Anion Gap 21.6 mEq/L (5-15); Blood Urea Nitrogen 40 mg/dl (9-20); Calcium 9.8 mg/dl (8.4-10.2); Carbon Dioxide 27 mmol/L (22.0-30.0); Chloride 99 mmol/L (98-107); Estimated Glomerular Filt Rate 35 ml/min (>60); GFR (African American) 42 ML/MIN (>60); Glucose 127 mg/dl (74-100); Phosphorous 3.8 mg/dl (2.5-4.5); Potassium 4.6 mmoL/L (3.5-5.1); Sodium 143 mmol/L (136-145)
[2022-06-22 19:10] LABS: Bacteria,Urine Trace /lpf
== END ==
PROVIDERS: PCP Family Medicine; Visit Provider Nurse Practitioner Family
DX: N18.32 Chronic kidney disease, stage 3b (principal)
CPT/HCPCS: 36415; 80069; 81001; 82570; 84155; 85014; 85018; 85048; 85049

== ENCOUNTER → 2022-09-07 13:13 | Outpatient (POV) | payer MEDICARE, BC, SELFPAY | PROVIDERS: Visit Provider Internal Medicine Nephrology | DX: Z00.00 Encounter for general adult medical examination without abnormal findings (principal) ==

== ENCOUNTER 2023-05-27 09:33 | Emergency (ER) | payer MEDICARE, BC, SELFPAY ==
[2023-05-27 09:50] VITALS: BP 109/46; PULSE 65; RESP 21; TEMP 37.2; O2SAT 93; BMI 40.8
--- NOTE | 2023-05-27 09:54 | EXP.UTC ---
Discharge Plan Disposition Patient Disposition: Home, Self-Care Condition: Good Prescriptions Prescriptions: New amoxicillin [amoxicillin] 875 mg tablet 875 mg PO Q12H Qty: 20 0RF benzonatate [benzonatate] 100 mg capsule 100 mg PO TIDP PRN (Reason: Cough) Qty: 30 0RF methylprednisolone 4 mg Tablets,Dose Pack 4 mg PO DIRECTED Qty: 21 0RF No Action melatonin 3 mg capsule 3 mg PO HS PRN tamsulosin 0.4 mg capsule 0.4 mg PO HS nifedipine [Procardia XL] 60 mg tablet extended release 24hr 60 mg PO DAILY cholecalciferol (vitamin D3) 50 mcg (2,000 unit) capsule 50 mcg PO DAILY isosorbide mononitrate 30 mg tablet extended release 24 hr 15 mg PO DAILY carbidopa-levodopa 25-100 mg tablet 1 tab PO BID Xarelto 20 mg tablet 20 mg PO DAILY Rx Instructions: must administer with evening meal losartan 100 mg tablet 100 mg PO DAILY cyanocobalamin (vitamin B-12) 1,000 mcg tablet 1,000 mcg PO DAILY Patient Comments: TAKE ONE TABLET BY MOUTH EVERY DAY furosemide 40 mg tablet 40 mg PO DAILY Patient Comments: TAKE ONE TABLET BY MOUTH EVERY DAY rosuvastatin [Crestor] 20 mg tablet 20 mg PO DAILY montelukast 10 mg tablet 10 mg PO QPM carvedilol [Coreg] 25 mg tablet 25 mg PO BID pregabalin [Lyrica] 75 mg capsule 75 mg PO BID metformin 850 mg tablet 250 mg PO BID sertraline 50 mg tablet 100 mg PO DAILY Referrals Follow up/Referrals: Danis Sam MD [Primary Care Provider] - See instructions Activity Restrictions/Add. Instructions Additional Instructions/Restrictions: Drink plenty of fluids. Take tylenol or ibuprofen for pain or fever. Take the medications as directed. Follow up with your regular doctor. GO TO THE ER FOR ANY WORSENING SYMPTOMS Clinical Impressions Clinical Impression: Sinusitis, Bronchitis, Acute viral syndrome Instructions Patient Instructions: Acute Bronchitis, DI for Sinusitis, DI for Viral Syndrome Discharge ED Provider: Osmel Bautista [facility] [place] [facility] HPI General Stated complaint: SOA,stuffy nose,cough,sore throat Time Seen by Provider: 05/27/23 09:54 History of Present Illness Provider Complaint: He states that for the past 2 days he has had sinus and chest congestion. His is currently in the hospital on a vent due to having RSV. Related Data Home Medications Medication Instructions Recorded Confirmed carvedilol 25 mg tablet (Coreg) 25 mg PO BID 05/22/19 06/02/22 montelukast 10 mg tablet 10 mg PO QPM 05/22/19 06/02/22 pregabalin 75 mg capsule (Lyrica) 75 mg PO BID 05/22/19 06/02/22 rosuvastatin 20 mg tablet (Crestor) 20 mg PO DAILY 05/22/19 06/02/22 carbidopa 25 mg-levodopa 100 mg 1 tab PO BID 03/31/22 06/02/22 tablet cholecalciferol (vitamin D3) 50 50 mcg PO DAILY 03/31/22 06/02/22 mcg (2,000 unit) capsule cyanocobalamin (vitamin B-12) 1,000 mcg PO DAILY 03/31/22 06/02/22 1,000 mcg tablet isosorbide mononitrate 30 mg 15 mg PO DAILY 03/31/22 06/02/22 tablet,extended release 24 hr losartan 100 mg tablet 100 mg PO DAILY 03/31/22 06/02/22 melatonin 3 mg capsule 3 mg PO HS PRN 03/31/22 06/02/22 metformin 850 mg tablet 250 mg PO BID 03/31/22 06/02/22 nifedipine 60 mg tablet,extended 60 mg PO DAILY 03/31/22 06/02/22 release 24 hr (Procardia XL) rivaroxaban 20 mg tablet (Xarelto) 20 mg PO DAILY 03/31/22 06/02/22 sertraline 50 mg tablet 100 mg PO DAILY 03/31/22 06/02/22 tamsulosin 0.4 mg capsule 0.4 mg PO HS 03/31/22 06/02/22 furosemide 40 mg tablet 40 mg PO DAILY 06/02/22 06/02/22 Previous Rx's Medication Instructions Recorded amoxicillin 875 mg tablet 875 mg PO Q12H #20 tabs 05/27/23 benzonatate 100 mg capsule 100 mg PO TIDP PRN Cough #30 caps 05/27/23 methylprednisolone 4 mg tablets in 4 mg PO DIRECTED #21 tabs 05/27/23 a dose pack Allergies Allergy/AdvReac Type Severity Reaction Status Date / Time lisinopril [LI
[2023-05-27 10:08] LABS: UTC Strep Screen (Rapid) Negative (Negative)
[2023-05-27 10:22] LABS: Adenovirus,PCR Not Detected (NotDetected); Coronavirus 19, PCR Not Detected (NotDetected); Coronavirus 229E Not Detected (NotDetected); Coronavirus NL63 Not Detected (NotDetected); Coronavirus OC43 Not Detected (NotDetected); Coronovirus HKU1,PCR Not Detected (NotDetected); Human Metapneumovirus Not Detected (NotDetected); Influenza A, PCR Not Detected (NotDetected); Influenza AH1, 2009 Not Detected (NotDetected); Influenza AH1, PCR Not Detected (NotDetected); Influenza AH3,PCR Not Detected (NotDetected); Influenza B, PCR Not Detected (NotDetected); Parainfluenza 1, PCR Not Detected (NotDetected); Parainfluenza 2, PCR Not Detected (NotDetected); Parainfluenza 3, PCR Not Detected (NotDetected); Parainfluenza 4, PCR Not Detected (NotDetected); Rhinovirus/Enterovirus Not Detected (NotDetected)
[2023-05-27 10:27] VITALS: BP 109/46; PULSE 65; RESP 21; TEMP 37.2; O2SAT 93
[2023-05-27 14:05] LABS: Respiratory Syncytial Virus Detected (NotDetected)
== END 2023-05-27 10:28 | disposition home or self-care (01) ==
PROVIDERS: Emergency Provider Nurse Practitioner Family; PCP Family Medicine
DX: J20.5 Acute bronchitis due to respiratory syncytial virus (principal); J01.80 Other acute sinusitis; Z86.73 Personal history of transient ischemic attack (TIA), and cerebral infarction without residual deficits; Z87.891 Personal history of nicotine dependence
CPT/HCPCS: 87632; 87635; 87880; 99204; 99212; G0463

== ENCOUNTER 2023-08-30 09:52 | Emergency (ER) | payer MEDICARE, BC, SELFPAY ==
[2023-08-30] VITALS (9 sets, daily range): BP systolic 99–116; BP diastolic 52–80; PULSE 54–80; RESP 16–18; TEMP 36.6–37.1; O2SAT 84–99; BMI 39.5
--- NOTE | 2023-08-30 10:18 | XR_ITS ---
FINAL REPORT CLINICAL HISTORY: fall, right hip pain COMPARISON: None FINDINGS: RIGHT HIP 3 views of the right hip demonstrate no acute fracture or dislocation. There are moderate degenerative changes. Osteopenia is noted. The visualized bony structures are well aligned. No soft tissue abnormality is seen. IMPRESSION: No acute bony abnormality. Reviewed, Interpreted and Dictated by Danis López MD Transcribed by Kellie Lee Authenticated and . [facility]
--- NOTE | 2023-08-30 10:18 | CT_ITS ---
FINAL REPORT TECHNIQUE: Axial CT images of the cervical spine were obtained without contrast. Sagittal and coronal reformatted images were also obtained. This study was performed with techniques to keep radiation doses as low as reasonably achievable (ALARA). Individualized dose reduction techniques using automated exposure control or adjustment of mA and/or kV according to the patient's size were employed. CLINICAL HISTORY: fall >65 COMPARISON: None FINDINGS: No fracture is seen. There is mild levoscoliosis. There is multilevel canal stenosis and neuroforaminal narrowing. There is advanced diffuse degenerative disc disease. IMPRESSION: Advanced degenerative changes without fracture. Reviewed, Interpreted and Dictated by Danis López MD Transcribed by Kellie Lee Authenticated and [facility]
--- NOTE | 2023-08-30 10:18 | CT_ITS ---
FINAL REPORT TECHNIQUE: Axial imaging of the head was obtained without contrast. This study was performed with techniques to keep radiation doses as low as reasonably achievable, (ALARA). Individualized dose reduction techniques using automated exposure control or adjustment of mA and/or kV according to the patient''s size were employed. CLINICAL HISTORY: fall >65, pain COMPARISON: None FINDINGS: There is moderate atrophy. Chronic microvascular changes are noted. No abnormal density is seen. Ventricles are normal. There is no hemorrhage. No mass effect is seen. Bone windows show no evidence of fracture. IMPRESSION: No acute findings Reviewed, Interpreted and Dictated by Danis López MD Transcribed by Kellie Lee Authenticated and [facility]
--- NOTE | 2023-08-30 10:18 | XR_ITS ---
FINAL REPORT CLINICAL HISTORY: fall, right knee pain COMPARISON: None FINDINGS: 3 views of the right knee were obtained. There is no acute fracture or dislocation. There are moderate degenerative changes. There is no soft tissue abnormality. IMPRESSION: No acute osseous abnormality. Reviewed, Interpreted and Dictated by Danis López MD Transcribed by Kellie Lee Authenticated and [facility]
--- NOTE | 2023-08-30 10:18 | XR_ITS ---
FINAL REPORT CLINICAL HISTORY: fall, right upper leg pain COMPARISON: None FINDINGS: Two views show no evidence of an acute, displaced fracture or dislocation of the visualized bony architecture. Degenerative changes are noted. IMPRESSION: No acute bony abnormality. Reviewed, Interpreted and Dictated by Danis López MD Transcribed by Kellie Lee Authenticated and [facility]
--- NOTE | 2023-08-30 10:18 | CT_ITS ---
FINAL REPORT TECHNIQUE: Axial images through the pelvis were performed by computed tomography. Sagittal and coronal reconstruction images were performed. This study was performed with techniques to keep radiation doses as low as reasonably achievable (ALARA). Individualized dose reduction techniques using automated exposure control or adjustment of mA and/or kV according to the patient's size were employed. CLINICAL HISTORY: fall >65, pain COMPARISON: None FINDINGS: There is no evidence of fracture. There is a soft tissue lytic lesion of the right sacrum measuring 3.9 x 2.8 cm, either likely metastatic disease or myeloma. There is also a 1.0 cm lesion of the L4 vertebral body. Left femoral head lesion is noted measuring 1.2 cm. IMPRESSION: No acute osseous abnormality. Lytic lesions as above, likely myeloma or metastatic disease. Reviewed, Interpreted and Dictated by Danis López MD Transcribed by Kellie Lee Authenticated and [facility]
[2023-08-30] MEDS: METHOCARBAMOL 500MG TABLET 500 MG PO (10:30)
[2023-08-30] MEDS: OXYCODONE 5MG IMMEDIATE RELEASE TABLET 5 MG PO (10:30)
[2023-08-30] MEDS: ACETAMINOPHEN 500MG TAB 1000 MG PO (10:30)
[2023-08-30] MEDS: ONDANSETRON 4MG ODT 4 MG SL (10:31)
--- NOTE | 2023-08-30 10:40 | HMH.EDGENADL ---
Discharge Plan Disposition Patient Disposition: Home, Self-Care Condition: Good Prescriptions Prescriptions: New naproxen 500 mg tablet 500 mg PO BID PRN (Reason: pain) Qty: 10 0RF lidocaine [Lidoderm] 5 % adhesive patch,medicated 1 patch topical DAILY Qty: 15 0RF Rx Instructions: leave on most painful area for up to 12 hrs methocarbamol 500 mg tablet 500 mg PO Q8H PRN (Reason: pain) Qty: 20 0RF No Action melatonin 3 mg capsule 3 mg PO HS PRN tamsulosin 0.4 mg capsule 0.4 mg PO HS nifedipine [Procardia XL] 60 mg tablet extended release 24hr 60 mg PO DAILY cholecalciferol (vitamin D3) 50 mcg (2,000 unit) capsule 50 mcg PO DAILY isosorbide mononitrate 30 mg tablet extended release 24 hr 15 mg PO DAILY carbidopa-levodopa 25-100 mg tablet 1 tab PO BID Xarelto 20 mg tablet 20 mg PO DAILY Rx Instructions: must administer with evening meal losartan 100 mg tablet 100 mg PO DAILY cyanocobalamin (vitamin B-12) 1,000 mcg tablet 1,000 mcg PO DAILY Patient Comments: TAKE ONE TABLET BY MOUTH EVERY DAY furosemide 40 mg tablet 40 mg PO DAILY Patient Comments: TAKE ONE TABLET BY MOUTH EVERY DAY rosuvastatin [Crestor] 20 mg tablet 20 mg PO DAILY montelukast 10 mg tablet 10 mg PO QPM carvedilol [Coreg] 25 mg tablet 25 mg PO BID pregabalin [Lyrica] 75 mg capsule 75 mg PO BID metformin 850 mg tablet 250 mg PO BID sertraline 50 mg tablet 100 mg PO DAILY amoxicillin [amoxicillin] 875 mg tablet 875 mg PO Q12H Qty: 20 0RF benzonatate [benzonatate] 100 mg capsule 100 mg PO TIDP PRN (Reason: Cough) Qty: 30 0RF methylprednisolone 4 mg Tablets,Dose Pack 4 mg PO DIRECTED Qty: 21 0RF Referrals Follow up/Referrals: Danis Sam MD [Primary Care Provider] - See instructions Activity Restrictions/Add. Instructions Additional Instructions/Restrictions: You were evaluated in the emergency department today. Please pick up attendant your prescriptions and take them as needed for pain. Please follow-up with your primary care provider over the next 3 days for reassessment. Physical therapy may be beneficial to you. Return to the emergency department for new or worsening symptoms. Clinical Impressions Clinical Impression: Fall, Acute pain of right hip, Lytic bone lesions on xray Instructions Patient Instructions: DI for Acute Pain -- Adult Discharge ED Provider: Chula Murphy General Adult HPI General Chief complaint: PAIN Stated complaint: AO pain in R hip from fall Time Seen by Provider: 08/30/23 09:54 Mode of Arrival: Wheelchair Source of Information: Patient and Relative Limitations: No Limitations Description of Symptoms (Recalled from ER Triage Doc. by RN): c/o right hip pain after a fall one week ago. pt states that he slipped out of bed. States the pain is worse with sitting and walking. History of Present Illness HPI narrative: This patient is a 73-year-old male with a history of paroxysmal atrial fibrillation on Xarelto, prior CVA with residual right-sided deficits including right foot drop, hypertension, hyperlipidemia, and ILANA presenting to the emergency department for evaluation with concern for right hip pain. Patient states that around a week ago, he had 2 falls [id number]. His first 1 was when his foot caught up in his blanket while getting out of bed. Few days later, he had a fall while stepping up to his bathroom. He did hit his head at 1 point, but he denies loss of consciousness. He states his only concern is been progressively worsening right hip pain. He is unable to bear weight on his right leg and has not been walking very much as a result of this. Of note, he chronically has weakness on the right side and worsened swelling and edema on the right side given his prior stroke. No other concerns noted at this time, such as Pain or swelling, numbness, tingling, weakness, headaches, or other concerns. Related Data Home Medications Medication Instructions Recorded Confirmed carvedilol 25 mg tablet (Coreg) 25 mg PO BID 05/22/19 06/02/22 montelukast 10 mg tablet 10 mg PO QPM 05/22/19 06/02/22 pregabalin 75 mg capsule (Lyrica) 75 mg PO BID 05/22/19 06/02/22 rosuvastatin 20 mg tablet (Crestor) 20 mg PO DAILY 05/22/19 06/02/22 carbidopa 25 mg-levodopa 100 mg 1 tab PO BID 03/31/22 06/02/22 tablet cholecalciferol (vitamin D3) 50 50 mcg PO DAILY 03/31/22 06/02/22 mcg (2,000 unit) capsule cyanocobalamin (vitamin B-12) 1,000 mcg PO DAILY 03/31/22 06/02/22 1,000 mcg tablet isosorbide mononitrate 30 mg 15 mg PO DAILY 03/31/22 06/02/22 tablet,extended release 24 hr losartan 100 mg tablet 100 mg PO DAILY 03/31/22 06/02/22 melatonin 3 mg capsule 3 mg PO HS PRN 03/31/22 06/02/22 metformin 850 mg tablet 250 mg PO BID 03/31/22 06/02/22 nifedipine 60 mg tablet,extended 60 mg PO DAILY 03/31/22 06/02/22 release 24 hr (Procardia XL) rivaroxaban 20 mg tablet (Xarelto) 20 mg PO DAILY 03/31/22 06/02/22 sertraline 50 mg tablet 100 mg PO DAILY 03/31/22 06/02/22 tamsulosin 0.4 mg capsule 0.4 mg PO HS 03/31/22 06/02/22 furosemide 40 mg tablet 40 mg PO DAILY 06/02/22 06/02/22 Previous Rx's Medication Instructions Recorded amoxicillin 875 mg tablet 875 mg PO Q12H #20 tabs 05/27/23 benzonatate 100 mg capsule 100 mg PO TIDP PRN Cough #30 caps 05/27/23 methylprednisolone 4 mg tablets in 4 mg PO DIRECTED #21 tabs 05/27/23 a dose pack lidocaine 5 % topical patch 1 patch topical DAILY #15 ea 08/30/23 (Lidoderm) methocarbamol 500 mg tablet 500 mg PO Q8H PRN pain #20 tabs 08/30/23 naproxen 500 mg tablet 500 mg PO BID PRN pain #10 tabs 08/30/23 Allergies Allergy/AdvReac Type Severity Reaction Status Date / Time lisinopril [LISINOPRIL] AdvReac Unknown COUGH Verified 06/02/22 13:04 [facility] Disclaimer: The information contained in this section may have been updated after the patient was seen, as this information can be updated by other users. Medical History CVA (cerebral vascular accident) Surgical History H/O heart bypass surgery Family History Other Cancer Coronary artery disease Hyperlipidemia Hypertension Social History Smoking Status: Former smoker alcohol intake: never substance use type: denies use current occupational status: disabled Travel in the last 8 weeks: None household members: spouse housing: house marital status: ROS Obtained: Yes All systems reviewed & no additional complaints except as documented Physical Exam General General appearance: alert, in no apparent distress and obese Head Head exam: atraumatic and normocephalic Eye Eye exam: Present normal appearance, PERRL and EOMI ENT ENT exam: Present normal exam, normal oropharynx, mucous membranes moist and normal external ear exam Neck Neck exam: Present normal inspection, full ROM and trachea midline; Absent tenderness Chest Chest inspection: Present normal inspection and symmetric chest wall rise; Absent tenderness Respiratory Respiratory exam: Present normal lung sounds bilaterally; Absent respiratory distress, wheezes, stridor or accessory muscle use Cardiovascular Cardiovascular exam: Present regular rate and normal rhythm Abdominal Exam Abdominal exam: Present soft; Absent distention, tenderness or guarding Extremities Exam Extremities exam: Present full ROM, tenderness (R hip joint, all compartments soft, neurovascularly intact distally), normal capillary refill and edema (1+ RLE, states is chronic since stroke) Back Exam Back exam: Present normal inspection and full ROM; Absent tenderness Neurological Exam Neurological exam: Present alert, oriented X3, CN II-XII intact and normal gait; Absent motor sensory deficit Psychiatric Psychiatric exam: Present normal affect and normal mood Skin Skin exam: Present warm and dry Medical Decision Making Medical Records Medical records reviewed: Yes I reviewed the patient's medical records. Ja Inquiry Pt receiving controlled substance: No Vital Signs: 08/30/23 09:52 08/30/23 09:59 08/30/23 10:01 Temperature 97.9 F Temperature Source Oral Pulse Rate 80 71 Pulse Rate [Left Radial] 79 Respiratory Rate 16 Blood Pressure 116/59 L 107/55 L Blood Pressure [Right Arm] 116/59 L Blood Pressure Mean 96 72 Blood Pressure Mean [Right Arm] 78 Blood Pressure Source Blood Pressure Source [Right Arm] Automatic Cuff Blood Pressure Position Blood Pressure Position [Right Arm] Sitting 02 Sat by Pulse Oximetry 93 L 93 L 94 L Oxygen Delivery Method Room Air 08/30/23 10:20 08/30/23 11:00 08/30/23 11:20 Temperature Temperature Source Pulse Rate 63 66 54 L Pulse Rate [Left Radial] Respiratory Rate Blood Pressure 102/58 L 99/80 L 102/52 L Blood Pressure [Right Arm] Blood Pressure Mean 68 Blood Pressure Mean [Right Arm] Blood Pressure Source Blood Pressure Source [Right Arm] Blood Pressure Position Blood Pressure Position [Right Arm] 02 Sat by Pulse Oximetry 93 L 96 96 Oxygen Delivery Method Room Air Room Air 08/30/23 11:40 08/30/23 12:00 08/30/23 12:40 Temperature 98.7 F Temperature Source Oral Pulse Rate 58 L 62 64 Pulse Rate [Left Radial] Respiratory Rate 18 Blood Pressure 103/52 L 110/53 L 110/53 L Blood Pressure [Right Arm] Blood Pressure Mean 60 72 Blood Pressure Mean [Right Arm] Blood Pressure Source Automatic Cuff Blood Pressure Source [Right Arm] Blood Pressure Position Sitting Blood Pressure Position [Right Arm] 02 Sat by Pulse Oximetry 85 L 84 L Oxygen Delivery Method Room Air Lab Data Lab results reviewed: Yes I reviewed the patient's lab results. Orders (Tests/Meds): ED MEDICATIONS Discontinued Medications Generic Name Dose Route Start Last Admin Trade Name Freq PRN Reason Stop Dose Admin Acetaminophen 1,000 mg 08/30/23 10:18 08/30/23 10:30 Acetaminophen 500mg Tab PO 08/30/23 10:19 1,000 mg ONCE ONE Administration Methocarbamol 500 mg 08/30/23 10:20 08/30/23 10:30 Methocarbamol 500mg Tablet PO 08/30/23 10:21 500 mg ONCE ONE Administration Ondansetron HCl 4 mg 08/30/23 10:18 08/30/23 10:31 Ondansetron 4mg Odt SL 08/30/23 10:19 4 mg ONCE ONE Administration Oxycodone HCl 5 mg 08/30/23 10:19 08/30/23 10:30 Oxycodone 5mg Immediate Release Tablet PO 08/30/23 10:20 5 mg ONCE ONE Administration ORDERS Category Date Time Status CT bony pelvis Stat Cat Scan 08/30/23 10:[address] cervical spine wo con Stat Cat Scan 08/30/23 10:[address] head/brain wo con Stat Cat Scan 08/30/23 10:18 Completed XR femur RT 2V Stat Exams 08/30/23 10:18 Completed XR hip RT 2-3V w/pelvis Stat Exams 08/30/23 10:18 Completed XR knee RT 3V Stat Exams 08/30/23 10:18 Completed Medical Decision Narrative: In summary, this patient is a 73-year-old male presenting to the Emergency Department for evaluation of right hip pain after 2 falls that happened approximately a week ago. Differential diagnoses considered include but are not limited to contusion, strain/sprain, fracture, neurovascular injury, head trauma, polytrauma. Ruling out the most morbid conditions drove assessment. It should be noted patient's history includes atrial fibrillation on Xarelto, prior CVA with right-sided deficits, ILANA, hypertension, and hyperlipidemia which may or may not be at goal therapy. This complicates all aspects of care by increasing patient's risk for morbidity. On exam, the patient is neurovascularly intact with only right hip pain. No other concerns noted. He does have chronic right lower extremity edema, which he states is unchanged. Workup included CT head and C-spine without contrast given his age and the fact that he is on blood thinners as well as CTs of the pelvis and x-rays of the injured right hip and lower extremity. He was given oral Tylenol, Robaxin, oxycodone, and Zofran for symptomatic improvement. I independently interpreted x-ray and CT scan prior to the radiologist read and noted no acute fracture, however patient does have lytic lesions which he was notified of. Please see their read for final interpretation. On reassessment, he had improvement in pain. He is able to ambulate with a walker. I discussed this with family and they feel comfortable taking him home. I instructed that he follow-up very closely with his primary care provider for further evaluation. Also advised that he may benefit from physical therapy evaluation. He was given prescriptions for naproxen, Robaxin, and Lidoderm patches. He was given strict and precautions, and he was discharged in stable condition after all questions were answered. Critical Care Critical Care Time Critical Care Time: No
--- NOTE | 2023-08-30 12:23 | PC.NURSE ---
Patient is able to walk around room and in hallway with walker, no issues. made aware.
== END 2023-08-30 12:47 | disposition home or self-care (01) ==
PROVIDERS: Emergency Provider Emergency Medicine; PCP Family Medicine
DX: M89.58 Osteolysis, other site (principal); M25.551 Pain in right hip; I48.0 Paroxysmal atrial fibrillation; I69.951 Hemiplegia and hemiparesis following unspecified cerebrovascular disease affecting right dominant side; I10 Essential (primary) hypertension; E78.5 Hyperlipidemia, unspecified; G47.33 Obstructive sleep apnea (adult) (pediatric); Z87.891 Personal history of nicotine dependence; W19.XXXA Unspecified fall, initial encounter
CPT/HCPCS: 70450; 72125; 72192; 73502; 73552; 73562; 99285

== ENCOUNTER 2023-09-14 11:35 | Outpatient (CLI) | payer MEDICARE, BC, SELFPAY ==
[2023-09-14 12:48] LABS: Blood Urea Nitrogen 38 mg/dl (9-20); Estimated Glomerular Filt Rate 26 ml/min (>60); GFR (African American) 31 ML/MIN (>60)
== END 2023-09-14 23:59 ==
PROVIDERS: PCP Family Medicine; Visit Provider Family Medicine
DX: Z01.812 Encounter for preprocedural laboratory examination (principal)
CPT/HCPCS: 36415; 82565; 84520

== ENCOUNTER 2023-09-15 08:22 | Outpatient (CLI) | payer MEDICARE, BC, SELFPAY ==
--- NOTE | 2023-09-15 10:19 | CT_ITS ---
FINAL REPORT TECHNIQUE: Axial CT images of the abdomen and pelvis were obtained without intravenous contrast. Coronal and sagittal reformatted images were also obtained.This study was performed with techniques to keep radiation doses as low as reasonably achievable (ALARA). Individualized dose reduction techniques using automated exposure control or adjustment of mA and/or kV according to the patient's size were employed. CLINICAL HISTORY: POSITIVE COLORECTAL CANCER SCREENING, LYTIC BONE LESION. RIGHT HIP PAIN COMPARISON: CT pelvis 08/30/2023 FINDINGS: Abdomen: There is mild atelectasis in the lung bases. There are multiple masses in the liver, largest in the medial segment of the left hepatic lobe measuring 36 x 35 mm, consistent with hepatic metastatic disease. There are probable gallstones in the gallbladder. The spleen, pancreas, and adrenals are unremarkable. There are multiple renal masses which cannot be accurately characterized. Some may represent cysts but others do not have the appearance of simple cysts. Pelvis: The appendix is normal. The urinary bladder is unremarkable. There is a small umbilical hernia containing fat. There is descending and sigmoid diverticulosis. There are multiple bony lesions in the T10, L4, right sacrum, and left femoral head consistent with bony metastatic disease. IMPRESSION: Multiple liver masses consistent with hepatic metastatic disease. Multiple bony masses consistent with bony metastatic disease. Multiple renal masses cannot be accurately characterized. Recommend renal mass protocol CT. Reviewed, Interpreted and Dictated by Marc Resendiz III, MD Transcribed by Kellie Lee Authenticated and [facility]
[2023-09-15] MEDS: DIATRIZOATE MEGLUMINE(GASTROGRAFIN) 66%-10% 120ML 20 ML PO (10:48)
== END 2023-09-15 23:59 ==
PROVIDERS: PCP Family Medicine; Visit Provider Family Medicine
DX: R19.5 Other fecal abnormalities (principal); M89.9 Disorder of bone, unspecified
CPT/HCPCS: 74176

== ENCOUNTER 2023-09-29 13:36 | Outpatient (CLI) | payer MEDICARE, BC, SELFPAY ==
[2023-09-29 14:18] LABS: Basophils % 0.6 % (0.1-2.0); Eosinophils # 0.3 K/mm3 (0.0-0.4); Eosinophils % 4.7 % (0.1-12.0); Hematocrit 38.6 % (42.0-52.0); Hemoglobin 11.8 g/dL (14.1-18.0); Lymphocytes # 1.3 K/mm3 (0.7-4.5); Lymphocytes % 22.8 % (10-50); Mean Corpuscular HGB Conc 30.7 g/dL (31.8-35.4); Mean Corpuscular Hemoglobin 29.2 pg (27.0-31.2); Mean Corpuscular Volume 94.9 fl (80-94); Mean Platelet Volume 13.1 fl (7.4-10.4); Monocytes # 0.4 K/mm3 (0.1-1.0); Monocytes % 7.3 % (1.7-9.3); Neutrophils # 3.6 K/mm3 (1.8-7.8); Neutrophils % 64.6 % (37.0-80.0); Platelet Count 199 K/mm3 (142-424); Red Blood Count 4.06 M/mm3 (4.60-6.20); Red Cell Distribution Width 15.9 % (11.5-17.5); White Blood Count 5.5 K/mm3 (4.8-10.8)
[2023-09-29 15:43] LABS: Alanine Aminotransferase 39 U/L (12-78); Albumin Level 3.9 g/dl (3.5-5.0); Albumin/Globulin Ratio 1.4 (1.1-1.8); Alkaline Phosphatase 415 U/L (38-126); Anion Gap 14.2 mEq/L (5-15); Aspartate Amino Transferase 162 U/L (17-59); Bilirubin,Total 1.6 mg/dl (0.2-1.3); Blood Urea Nitrogen 46 mg/dl (9-20); Calcium 9.2 mg/dl (8.4-10.2); Carbon Dioxide 25 mmol/L (22.0-30.0); Chloride 107 mmol/L (98-107); Estimated Glomerular Filt Rate 22 ml/min (>60); GFR (African American) 27 ML/MIN (>60); Globulin 2.8 g/dL (1.3-3.2); Glucose 122 mg/dl (74-100); Potassium 4.2 mmoL/L (3.5-5.1); Sodium 142 mmol/L (136-145); Total Protein,Serum 6.7 g/dl (6.3-8.2)
[2023-09-30 08:58] LABS: CEA 8.7 ng/mL (0.0-4.7)
== END 2023-09-29 23:59 ==
LOC: LAB 13:37
PROVIDERS: PCP Family Medicine; Visit Provider Internal Medicine Medical Oncology
DX: C18.9 Malignant neoplasm of colon, unspecified; C79.9 Secondary malignant neoplasm of unspecified site; M25.551 Pain in right hip; N28.89 Other specified disorders of kidney and ureter; C79.51 Secondary malignant neoplasm of bone
CPT/HCPCS: 36415; 80053; 82378; 84153; 85025

== ENCOUNTER 2023-10-01 12:34 | Day surgery (SDC) | payer MEDICARE, BC, SELFPAY ==
[2023-09-30 11:11] VITALS: BMI 36.9
[2023-10-01] VITALS (7 sets, daily range): BP systolic 108–182; BP diastolic 62–91; PULSE 81–95; RESP 12–18; TEMP 36.1–36.6; O2SAT 92–99
[2023-10-01] MEDS: LACTATED RINGERS 1000ML 1,000 ML 100 ML IV (12:54)
[2023-10-01 12:59] LABS: POC Glucose,Bedside 109 (70-110)
--- NOTE | 2023-10-01 13:03 | P.PNANES_ITS ---
[facility] Disclaimer: The information contained in this section may have been updated after the patient was seen, as this information can be updated by other users. Medical History A-fib Anxiety Chronic kidney disease CVA (cerebral vascular accident) Depression Edema History of COVID-19 [place] (hard of hearing) Hyperlipemia Hypertension Sleep apnea Surgical History H/O heart bypass surgery History of back surgery History of cataract surgery Family History Other Cancer Coronary artery disease Hyperlipidemia Hypertension Social History Smoking Status: Former smoker alcohol intake: never substance use type: denies use current occupational status: retired Travel in the last 8 weeks: None household members: spouse housing: house marital status: [facility] Anesthesia Checklist Patient Identification Patient Identification: Arm Band and Verbal (Name & ) Structural Data Admitted From: Home Planned Operative Procedure/s: Colonoscopy Consent for Planned Operative Procedure(s) Verified: Yes NPO Status Verified Time NPO: 00:00 Airway Assessment Mallampati Score:: Class III C-Spine Mobility Assessed: Yes TMJ Mobility Assessed: Yes Dentition: Poor Dentition Neurological Assessment Level of Consciousness: Awake Hx Seizures: No Numbness or tingling in extremities: No Anesthesia Plan Anesthesia Risk discussed: Yes Anesthesia Plan: Verified ASA Class: III Anesthesia Type: MAC
--- NOTE | 2023-10-01 13:58 | HMH.SCOPE ---
Procedure: Date: 10/01/23 Patient Date of :: 1950 Procedure Performed:: Total colonoscopy to terminal ileum with multiple polypectomy and biopsy Indications:: Patient is a 73-year-old male with history of coronary artery disease with previous bypass surgery, prior CVA with residual deficits, renal insufficiency, history of atrial fibrillation on Xarelto, obstructive sleep apnea. He is referred by Dr. Sam to be seen in the office prior to scheduling a colonoscopy. Patient had apparently undergone Cologuard testing sometime ago which was reportedly positive. According to patient and his he had repeatedly declined immediate consideration of colonoscopy. Patient is never had prior colonoscopy. He has had some recent fecal diarrheal urgency. Denies any rectal bleeding. He was referred for consultation for scheduling colonoscopy. Patient was recently seen in the emergency department after he had sustained persistent pain in the right hip with difficulty bearing weight after he had sustained a fall. While in the emergency department he underwent CT scan which revealed findings of multiple liver masses consistent with hepatic metastatic disease. Multiple bony masses consistent with bony metastatic disease. Multiple renal masses cannot be accurately characterized. Patient did have an appointment with Dr. Hickman with oncology. He has a normal PSA level. CEA level is 8.7. Performing Provider:: Marc De Jesus MD Referring Provider:: Timothy Sam MD Sedation:: MAC sedation Procedure:: Patient history was obtained and appropriate physical examination was performed. Patient's medications and allergies were reviewed. Informed consent was obtained after explaining the benefits, alternatives, and risks of the procedure including, but not limited to, bleeding, perforation, missed lesions, and adverse reaction to anesthesia medications. Patient was transported to endoscopy procedure room. Patient was connected to monitoring devices. Throughout the procedure the patient's blood pressure, pulse, and oxygen saturations were monitored continuously. Patient identification and planned procedure were verified by the staff. Patient was positioned in lateral decubitus position. Digital anorectal exam was performed. Variable stiffness Olympus colonoscope was inserted and advanced under direct visualization to the cecum. Adequacy of the colonic preparation was noted. The colonoscope was advanced a short distance into the terminal ileum. The colonoscope was then slowly withdrawn while carefully examining the color, texture, anatomy, and integrity of the mucosoa circumferentially. Within the rectum retroflexion was performed. Colonoscope was then withdrawn. . Colonoscope was advanced to the cecum. Within the ileocecal valve there was prominent focal lesion which initially was felt to be potentially adenomatous polyp but upon further inspection it appeared to be likely submucosal lesion consistent with submucosal lipoma. Therefore as opposed to polypectomy biopsies were obtained. Submucosal tissue had the appearance of adipose tissue consistent with submucosal lipoma. In the cecum there was a moderate adenomatous polyp removed with hot snare. Near the hepatic flexure there was a moderate adenomatous polyp removed with hot snare. The proximal transverse colon there was a diminutive adenomatous appearing polyp removed with cold snare. In proximal sigmoid colon there was a small adenomatous appearing polyp removed with cold snare. At the rectosigmoid region there was a small adenomatous appearing polyp removed with cold snare. In the rectum there was a tiny diminutive polyp, uncertain etiology, removed in a piecemeal fashion using biopsy forceps. He had some sigmoid diverticulosis. . 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 Possibly noncolonic etiology. Follow-up colonoscopy pending pathology and workup regarding other lesions for potential primary source. Complications:: None immediately apparent Estimated blood obtained (mL): 2 Colonoscopy Component Colonoscopy Component Was a colonoscopy performed during today's procedure?: Yes Recommended follow up colonoscopy of at least 10 years?: No If no, follow up colonoscopy recommended in ___ years?: See above Reason for not recommending >/= 10 yr follow-up interval?: See above
[2023-10-01 14:52] LABS: Basophils # 0.1 K/mm3 (0-0.2); Basophils % 1.5 % (0.1-2.0); Eosinophils # 0.1 K/mm3 (0.0-0.4); Eosinophils % 2.5 % (0.1-12.0); Hematocrit 40.6 % (42.0-52.0); Hemoglobin 12.6 g/dL (14.1-18.0); Lymphocytes # 1.3 K/mm3 (0.7-4.5); Lymphocytes % 22.3 % (10-50); Mean Corpuscular HGB Conc 31.1 g/dL (31.8-35.4); Mean Corpuscular Hemoglobin 29.4 pg (27.0-31.2); Mean Corpuscular Volume 94.5 fl (80-94); Mean Platelet Volume 12.1 fl (7.4-10.4); Monocytes # 0.5 K/mm3 (0.1-1.0); Monocytes % 8.5 % (1.7-9.3); Neutrophils # 3.7 K/mm3 (1.8-7.8); Neutrophils % 65.2 % (37.0-80.0); Platelet Count 156 K/mm3 (142-424); Red Cell Distribution Width 15.7 % (11.5-17.5); White Blood Count 5.7 K/mm3 (4.8-10.8)
[2023-10-01 14:58] LABS: Activated Partial Thrombo Time 26.6 seconds (22.8-30.6); INR 1.03 (0.9-1.1); Prothrombin Time 11.1 seconds (10.1-12.5)
== END 2023-10-01 14:45 | disposition home or self-care (01) ==
PROVIDERS: PCP Family Medicine; Visit Provider Surgery
PROC: 0DJD8ZZ Inspection of Lower Intestinal Tract, Via Natural or Artificial Opening Endoscopic (ICD-10-PCS; CPT 45380; principal; 2023-10-01 14:00)
DX: K63.89 Other specified diseases of intestine; D12.0 Benign neoplasm of cecum; D12.3 Benign neoplasm of transverse colon; K63.5 Polyp of colon; K57.32 Diverticulitis of large intestine without perforation or abscess without bleeding; R15.2 Fecal urgency; R19.5 Other fecal abnormalities; Z79.899 Other long term (current) drug therapy
CPT/HCPCS: 45380; 45385; 36415; 82962; 85025; 85610; 85730; 88305; J2704

== ENCOUNTER 2023-10-04 06:36 | Outpatient (CLI) | payer MEDICARE, BC, SELFPAY ==
[2023-10-04] VITALS (11 sets, daily range): BP systolic 123–165; BP diastolic 57–74; PULSE 49–66; RESP 16–18; TEMP 36.1; O2SAT 90–100; BMI 36.9
--- NOTE | 2023-10-04 06:50 | CT_ITS ---
FINAL REPORT CLINICAL HISTORY: .sacral lesion biopsy FINDINGS: CT GUIDED SACRAL BONE CORE BIOPSY. HISTORY: .Sacral mass. ATTENDING PHYSICIAN: Dr. Resendiz PHYSICIAN [employer] TE[employer]ER: Pierre Almanza PA-C PROCEDURE: After informed consent was obtained and a timeout was performed, the patient was prepped and draped in usual sterile fashion over the right sacrum. Utilizing local anesthesia and sterile technique with a coaxial system, access to lesion was obtained. A total of 4 separate 18-gauge core biopsies were obtained. Post biopsy films demonstrate no evidence of acute complication. The patient received moderate procedural sedation. The patient tolerated the procedure well and left the department in good condition. The patient received sedation in the form of a total of 2 mg of Versed and 50 mcg of fentanyl over a span of 15 minutes with continued nurse monitoring. IMPRESSION: Status post CT guided biopsy of sacral mass without immediate complication. Films reviewed , interpreted and dictated by Dr. Resendiz. Transcribed by Pierre Almanza PA-C. Reviewed, Interpreted and Dictated by Marc Resendiz III, MD Transcribed by NAYANA Godwin Authenticated and [facility]
[2023-10-04 07:22] LABS: POC Glucose,Bedside 135 (70-110)
[2023-10-04] MEDS: LACTATED RINGERS 1000ML 1,000 ML 25 ML IV (07:34)
--- NOTE | 2023-10-04 09:18 | PC.NURSE ---
pt sleeping at this time.
== END 2023-10-04 10:51 | disposition home or self-care (01) ==
PROVIDERS: PCP Family Medicine; Visit Provider Internal Medicine Medical Oncology
DX: C18.9 Malignant neoplasm of colon, unspecified (principal); C79.9 Secondary malignant neoplasm of unspecified site; M89.9 Disorder of bone, unspecified; Z79.899 Other long term (current) drug therapy; M53.3 Sacrococcygeal disorders, not elsewhere classified
CPT/HCPCS: 20220; 77012; 82962; 88307; 88341; 88342; 88360

== ENCOUNTER 2023-10-06 14:49 | Outpatient (CLI) | payer MEDICARE, BC, SELFPAY ==
[2023-10-06 14:55] VITALS: BMI 36.9
--- NOTE | 2023-10-06 15:05 | PC.NURSE ---
1505-collected labs via venipuncture stick with butterfly needle in left forearm. pt to d/c home.
[2023-10-09 15:51] LABS: CA 19-9 62 U/mL (0-35)
== END 2023-10-06 15:10 | disposition home or self-care (01) ==
LOC: INF 14:51
PROVIDERS: PCP Family Medicine; Visit Provider Internal Medicine Medical Oncology
DX: C25.1 Malignant neoplasm of body of pancreas (principal); R97.8 Other abnormal tumor markers
CPT/HCPCS: 86301; 36415

== ENCOUNTER 2023-10-12 11:47 | Observation (INO) | payer MEDICARE, BC, SELFPAY ==
[2023-10-12] VITALS (18 sets, daily range): BP systolic 124–157; BP diastolic 46–73; PULSE 60–109; RESP 18–20; TEMP 36.6–36.8; O2SAT 83–100; BMI 33.0
--- NOTE | 2023-10-12 11:50 | PC.NURSE ---
Patient room air oxygen saturation at rest is 88%.
--- NOTE | 2023-10-12 11:57 | CT_ITS ---
FINAL REPORT CLINICAL HISTORY: fell, hit head on xarelto COMPARISON: 08/30/2023 FINDINGS: Axial images of the head were obtained without contrast. Coronal reformatted images were also obtained. This study was performed with techniques to keep radiation doses as low as reasonably achievable (ALARA). Individualized dose reduction techniques using automated exposure control or adjustment of mA and/or kV according to the patient''s size were employed. There is generalized age-appropriate atrophy. Periventricular low-attenuation areas are seen consistent with mild chronic ischemic changes. There is no evidence of intracranial hemorrhage or mass. There is no evidence of acute infarct. There is no evidence of shift of the midline structures. No skull abnormality is seen on the bone window images. IMPRESSION: Atrophy and mild periventricular chronic ischemic changes. No acute intracranial abnormality identified. Reviewed, Interpreted and Dictated by Marc Resendiz III, MD Transcribed by Kellie Lee Authenticated and [facility]
--- NOTE | 2023-10-12 11:57 | CT_ITS ---
FINAL REPORT CLINICAL HISTORY: fell, hit head on xareldevan COMPARISON: 08/30/2023 FINDINGS: Axial CT images of the cervical spine were obtained without contrast. Sagittal and coronal reformatted images were also obtained. This study was performed with techniques to keep radiation doses as low as reasonably achievable (ALARA). Individualized dose reduction techniques using automated exposure control or adjustment of mA and/or kV according to the patient''s size were employed. There is no evidence of fracture or dislocation. Moderate degenerative change. There is multilevel neuroforaminal narrowing. There is mild central canal stenosis at C3-4, C4-5, C5-6, and C6-7. There are chronic calcifications in the soft tissues posteriorly. There are multiple new and worsening lytic foci in the cervical spine and upper thoracic spine. Largest lesion at C2 measures 10 mm and is consistent with myeloma or metastatic disease. IMPRESSION: No evidence of fracture. Multiple new and worsening lytic foci consistent with myeloma or metastatic disease. Reviewed, Interpreted and Dictated by Marc Resendiz III, MD Transcribed by Kellie Lee Authenticated and [facility]
--- NOTE | 2023-10-12 11:58 | XR_ITS ---
FINAL REPORT CLINICAL HISTORY: fall, R shoulder pain and humerus COMPARISON: None FINDINGS: RIGHT ELBOW 3 views were obtained. Nonstandard views were provided. There is no acute fracture or dislocation. There is no joint effusion. Degenerative changes are noted. There is no soft tissue abnormality. IMPRESSION: No acute bony abnormality. Reviewed, Interpreted and Dictated by Marc Resendiz III, MD Transcribed by Kellie Lee Authenticated and [facility]
--- NOTE | 2023-10-12 11:58 | XR_ITS ---
FINAL REPORT CLINICAL HISTORY: fall, hypoxemia COMPARISON: 03/03/2022 FINDINGS: A single portable view of the chest was obtained. Cardiomegaly is noted. Pulmonary vascularity is within normal limits. Prior median sternotomy. Bibasilar pulmonary opacities are favored to represent atelectasis. The bony thorax is intact. IMPRESSION: Bibasilar pulmonary opacities favored to represent atelectasis. Reviewed, Interpreted and Dictated by Marc Resendiz III, MD Transcribed by Kellie Lee Authenticated and [facility]
--- NOTE | 2023-10-12 11:58 | CT_ITS ---
FINAL REPORT TECHNIQUE: Axial images were obtained from the lung apex to the mid abdomen by computed tomography. Coronal reformatted images were obtained. This study was performed with techniques to keep radiation doses as low as reasonably achievable, (ALARA). Individualized dose reduction techniques using automated exposure control or adjustment of mA and/or kV according to the patient''s size were employed. CLINICAL HISTORY: fell, right shoulder pain and hypoxemia COMPARISON: 05/05/2021 FINDINGS: Prior median sternotomy. There is no axillary adenopathy. There is no hilar or mediastinal adenopathy. Heart size is normal. There is no pericardial or pleural effusion. There is mild atelectasis. There is no pneumothorax. There is a right lateral sixth nondisplaced rib fracture. There is a nondisplaced fracture of the right scapular bone. Multiple lytic areas are seen in the thoracic vertebrae consistent with myeloma or metastatic disease. IMPRESSION: Right lateral 6 nondisplaced rib fracture. Nondisplaced fracture right scapular bone. Multiple lytic areas consistent with myeloma or metastatic disease in the thoracic vertebrae. Reviewed, Interpreted and Dictated by Marc Resendiz III, MD Transcribed by Kellie Lee Authenticated and [facility]
--- NOTE | 2023-10-12 11:58 | XR_ITS ---
FINAL REPORT CLINICAL HISTORY: fall, R shoulder pain and humerus COMPARISON: None FINDINGS: RIGHT SHOULDER: 3 views of the right shoulder were obtained. There is a nondisplaced fracture of the mid scapular bone. There is mild AC joint degenerative change. There is no soft tissue abnormality. IMPRESSION: Mid right scapular nondisplaced fracture. Reviewed, Interpreted and Dictated by Marc Resendiz III, MD Transcribed by Kellie Lee Authenticated and [facility]
--- NOTE | 2023-10-12 11:58 | XR_ITS ---
FINAL REPORT CLINICAL HISTORY: fall, R shoulder pain and humerus COMPARISON: None FINDINGS: Two views of the right humerus were obtained. There is no acute fracture or dislocation. There are degenerative changes of the shoulder and elbow. There is no acute soft tissue abnormality. IMPRESSION: No acute abnormality identified. Reviewed, Interpreted and Dictated by Marc Resendiz III, MD Transcribed by Kellie Lee Authenticated and [facility]
--- NOTE | 2023-10-12 11:58 | CT_ITS ---
FINAL REPORT CLINICAL HISTORY: fell, hit head on xarelto COMPARISON: None FINDINGS: Axial imaging of the lumbar spine was obtained without contrast. Sagittal and coronal reformatted images were also obtained and reviewed.This study was performed with techniques to keep radiation doses as low as reasonably achievable (ALARA). Individualized dose reduction techniques using automated exposure control or adjustment of mA and/or kV according to the patient's size were employed. Pathologic fracture of the L1 transverse process. There is no other fracture. There are multiple lytic lesions consistent with myeloma or metastatic disease, largest at the L4 vertebral body measuring 19 mm. There is mild and moderate degenerative change. IMPRESSION: Pathologic fracture L1 transverse process. No other fracture seen. Multiple lytic lesions consistent with myeloma or metastatic disease. Reviewed, Interpreted and Dictated by Marc Resendiz III, MD Transcribed by Kellie Lee Authenticated and [facility]
--- NOTE | 2023-10-12 11:58 | CT_ITS ---
FINAL REPORT CLINICAL HISTORY: fell, hit head on xarelto COMPARISON: None FINDINGS: Axial CT images of the thoracic spine were obtained without contrast. Sagittal and coronal reformatted images were also obtained. This study was performed with techniques to keep radiation doses as low as reasonably achievable (ALARA). Individualized dose reduction techniques using automated exposure control or adjustment of mA and/or kV according to the patient's size were employed. There is no evidence of fracture. Moderate degenerative change. Lytic lesions in most of the thoracic vertebrae consistent with myeloma or metastatic disease. Largest foci in the T10 vertebral body measures 18 mm. IMPRESSION: No acute fracture seen. Lytic lesions consistent with myeloma or metastatic disease. Reviewed, Interpreted and Dictated by Marc eRsendiz III, MD Transcribed by Kellie Lee Authenticated and [facility]
--- NOTE | 2023-10-12 11:58 | CT_ITS ---
FINAL REPORT CLINICAL HISTORY: fell, landed on R side. R hip pain COMPARISON: 09/15/2023 FINDINGS: Axial CT images of the abdomen and pelvis were obtained without intravenous contrast. Coronal reformatted images were also obtained.This study was performed with techniques to keep radiation doses as low as reasonably achievable (ALARA). Individualized dose reduction techniques using automated exposure control or adjustment of mA and/or kV according to the patient's size were employed. Abdomen: There is significant artifact secondary to patient arm positioning decreasing sensitivity of this exam. There are multiple hepatic masses again seen consistent with metastatic disease. There are probable stones and sludge in the gallbladder. There are multiple renal masses bilaterally, some bilaterally do not have the appearance of simple cysts and are favored to represent complex cyst. The spleen and pancreas have an unremarkable, unenhanced appearance. Moderate vascular calcifications are noted. No inflammatory process is identified. There is a small umbilical hernia containing fat. Pelvis: There is descending and sigmoid diverticulosis. There are multiple masses in the bony skeleton consistent with widespread metastatic disease or myeloma. Larger mass in the right sacrum measures 46 x 36 mm and is stable. There is a lytic lesion in the anterior left femoral head measuring 19 mm, was 14 mm. Lytic lesion in the posterior medial left iliac bone now measures 21 mm, and previously measured 8 mm. L4 lytic lesion has increased from 17 mm to 24 mm. Several other lytic lesions are visually worse. IMPRESSION: Worsening bony masses consistent with worsening metastatic disease or myeloma. Multiple hepatic masses consistent with metastatic disease. Bilateral complex renal cysts. Diverticulosis. Reviewed, Interpreted and Dictated by Marc Resendiz III, MD Transcribed by Kellie Lee Authenticated and [facility]
--- NOTE | 2023-10-12 12:22 | PC.NURSE ---
Patient to radiology.
--- NOTE | 2023-10-12 12:34 | ED_ITS ---
Discharge Plan Disposition Patient Disposition: Home, Self-Care Prescriptions Prescriptions: No Action tamsulosin 0.4 mg capsule 0.4 mg PO HS nifedipine [Procardia XL] 60 mg tablet extended release 24hr 60 mg PO DAILY cholecalciferol (vitamin D3) 50 mcg (2,000 unit) capsule 50 mcg PO DAILY isosorbide mononitrate 30 mg tablet extended release 24 hr 15 mg PO DAILY carbidopa-levodopa 25-100 mg tablet 1 tab PO BID Xarelto 20 mg tablet 20 mg PO DAILY Rx Instructions: must administer with evening meal losartan 100 mg tablet 100 mg PO DAILY cyanocobalamin (vitamin B-12) 1,000 mcg tablet 1,000 mcg PO DAILY Patient Comments: TAKE ONE TABLET BY MOUTH EVERY DAY furosemide 40 mg tablet 20 mg PO DAILY Patient Comments: TAKE ONE TABLET BY MOUTH EVERY DAY colchicine 0.6 mg tablet 0.6 mg PO BID montelukast 10 mg tablet 10 mg PO QPM pregabalin [Lyrica] 75 mg capsule 75 mg PO BID sertraline 50 mg tablet 100 mg PO DAILY carvedilol [Coreg] 25 mg tablet 6.25 mg PO BID metformin 850 mg tablet 500 mg PO BID oxycodone 5 mg tablet See Rx Instructions PO Q6H PRN (Reason: pain) Qty: 60 0RF Rx Instructions: 1-2 tabs orally every 6 hours PRN; naproxen 500 mg tablet 500 mg PO BID PRN (Reason: pain) Qty: 10 0RF methocarbamol 500 mg tablet 500 mg PO Q8H PRN (Reason: pain) Qty: 20 0RF dapagliflozin propanediol [Farxiga] 10 mg Tablet 10 mg PO DAILY Referrals Follow up/Referrals: Danis Sam MD [Primary Care Provider] - See instructions Clinical Impressions Clinical Impression: Acute hypoxemic respiratory failure, Pathologic fracture of lumbar vertebra, Pathologic fracture of right scapula, Multiple myeloma Discharge ED Provider: Edison Tavares General Adult HPI General Chief complaint: Fall Stated complaint: Fall Time Seen by Provider: 10/12/23 11:51 Mode of Arrival: EMS Source of Information: Patient and EMS Limitations: No Limitations Description of Symptoms (Recalled from ER Triage Doc. by RN): Patient reports having multiple falls over the past couple of days. Per EMS patient fell 2 days ago and again last night. Patient complaint of right shoulder pain. Denies LOC. Family states the patient has been a little more confused lately than he usually is. History of Present Illness HPI narrative: 73-year-old male with history of metastatic malignancy of unknown, ILANA on CPAP and home oxygen at night, paroxysmal A-fib on Xarelto, hypertension, hyperlipidemia, presenting with right-sided shoulder pain. Patient states that he has fallen a couple times in the past 2 days. He landed on the right side of the shoulder not on an outstretched arm. He did hit his head, no loss of consciousness. Stating that he has mild neck pain, right shoulder and right- sided back pain, but has not ambulated since his fall yesterday. Due to severe pain, called the ambulance and had him brought to the emergency department today. Complaining of 10 out of 10 pain in his right shoulder with movement, minimal at rest. Related Data Home Medications Medication Instructions Recorded Confirmed montelukast 10 mg tablet 10 mg PO QPM 05/22/19 10/04/23 pregabalin 75 mg capsule (Lyrica) 75 mg PO BID 05/22/19 10/04/23 carbidopa 25 mg-levodopa 100 mg 1 tab PO BID 03/31/22 10/04/23 tablet cholecalciferol (vitamin D3) 50 50 mcg PO DAILY 03/31/22 10/04/23 mcg (2,000 unit) capsule cyanocobalamin (vitamin B-12) 1,000 mcg PO DAILY 03/31/22 10/04/23 1,000 mcg tablet isosorbide mononitrate 30 mg 15 mg PO DAILY 03/31/22 10/04/23 tablet,extended release 24 hr losartan 100 mg tablet 100 mg PO DAILY 03/31/22 10/04/23 nifedipine 60 mg tablet,extended 60 mg PO DAILY 03/31/22 10/04/23 release 24 hr (Procardia XL) rivaroxaban 20 mg tablet (Xarelto) 20 mg PO DAILY 03/31/22 10/04/23 sertraline 50 mg tablet 100 mg PO DAILY 03/31/22 10/04/23 tamsulosin 0.4 mg capsule 0.4 mg PO HS 03/31/22 10/04/23 carvedilol 25 mg tablet (Coreg) 6.25 mg PO BID 09/21/23 10/04/23 colchicine 0.6 mg tablet 0.6 mg PO BID 09/21/23 10/04/23 furosemide 40 mg tablet 20 mg PO DAILY 09/21/23 10/04/23 metformin 850 mg tablet 500 mg PO BID 09/21/23 10/04/23 dapagliflozin propanediol 10 mg 10 mg PO DAILY 10/01/23 10/04/23 tablet (Farxiga) Previous Rx's Medication Instructions Recorded methocarbamol 500 mg tablet 500 mg PO Q8H PRN pain #20 tabs 08/30/23 naproxen 500 mg tablet 500 mg PO BID PRN pain #10 tabs 08/30/23 oxycodone 5 mg tablet See Rx Instructions PO Q6H PRN 09/29/23 pain #60 tabs Allergies Allergy/AdvReac Type Severity Reaction Status Date / Time lisinopril [LISINOPRIL] AdvReac Unknown COUGH Verified 10/04/23 06:53 [facility] Disclaimer: The information contained in this section may have been updated after the patient was seen, as this information can be updated by other users. Medical History A-fib Anxiety Chronic kidney disease CVA (cerebral vascular accident) Depression Edema History of COVID-19 [place] (hard of hearing) Hyperlipemia Hypertension Sleep apnea Surgical History H/O heart bypass surgery History of back surgery History of cataract surgery Family History Other Cancer Coronary artery disease Hyperlipidemia Hypertension Social History Smoking Status: Never smoker alcohol intake: never substance use type: denies use current occupational status: retired Travel in the last 8 weeks: None household members: spouse housing: house marital status: ROS Obtained: Yes All systems reviewed & no additional complaints except as documented Physical Exam General General appearance: alert and other (Cyanotic, pale) Head Head exam: atraumatic and normocephalic Eye Eye exam: Present normal appearance, PERRL and EOMI ENT ENT exam: Present mucous membranes moist Neck Neck exam: Present normal inspection, full ROM and trachea midline Respiratory Respiratory exam: Present normal lung sounds bilaterally; Absent respiratory distress, wheezes, stridor, accessory muscle use or prolonged expiratory phase Cardiovascular Cardiovascular exam: Present regular rate and normal rhythm Abdominal Exam Abdominal exam: Present soft; Absent distention, tenderness, guarding, rebound or rigidity Extremities Exam Extremities exam: Present edema and other (Significant tenderness and swelling about right shoulder. Neurovascularly intact, but range of motion limited secondary to pain. Right upper extremity is in sling. No obvious deformity) Neurological Exam Neurological exam: Present alert, oriented X3, CN II-XII intact and normal gait; Absent motor sensory deficit Skin Skin exam: Present warm and dry; Absent diaphoresis or erythema Medical Decision Making Medical Records Medical records reviewed: Yes I reviewed the patient's medical records. Ja Inquiry Pt receiving controlled substance: No Ja was queried for this patient: No Vital Signs: 10/12/23 11:48 10/12/23 11:50 10/12/23 11:51 Temperature 97.9 F Temperature Source Oral Pulse Rate 81 Pulse Rate [Radial] 96 H Respiratory Rate 18 Blood Pressure Blood Pressure [Right Arm] 139/69 Blood Pressure Mean [Right Arm] 92 Blood Pressure Source [Right Arm] Automatic Cuff Blood Pressure Position [Right Arm] Sitting 02 Sat by Pulse Oximetry 91 L 88 L 96 Oxygen Delivery Method Room Air Nasal Cannula Oxygen Flow Rate (LPM) 4 10/12/23 12:00 10/12/23 12:57 10/12/23 13:00 Temperature Temperature Source Pulse Rate 85 69 68 Pulse Rate [Radial] Respiratory Rate Blood Pressure 136/60 137/65 132/63 Blood Pressure [Right Arm] Blood Pressure Mean [Right Arm] Blood Pressure Source [Right Arm] Blood Pressure Position [Right Arm] 02 Sat by Pulse Oximetry 95 95 95 Oxygen Delivery Method Room Air Room Air Room Air Oxygen Flow Rate (LPM) 10/12/23 13:31 10/12/23 14:00 10/12/23 14:30 Temperature Temperature Source Pulse Rate 76 81 64 Pulse Rate [Radial] Respiratory Rate Blood Pressure 129/57 L 131/56 L 124/57 L Blood Pressure [Right Arm] Blood Pressure Mean [Right Arm] Blood Pressure Source [Right Arm] Blood Pressure Position [Right Arm] 02 Sat by Pulse Oximetry 97 97 97 Oxygen Delivery Method Room Air Room Air Room Air Oxygen Flow Rate (LPM) 10/12/23 14:45 Temperature Temperature Source Pulse Rate 84 Pulse Rate [Radial] Respiratory Rate Blood Pressure 124/57 L Blood Pressure [Right Arm] Blood Pressure Mean [Right Arm] Blood Pressure Source [Right Arm] Blood Pressure Position [Right Arm] 02 Sat by Pulse Oximetry 92 L Oxygen Delivery Method Oxygen Flow Rate (LPM) Lab Data Lab Results 10/12/23 12:58: WBC 7.5, RBC 4.30 L, Hgb 12.8 L, Hct 40.1 L, MCV 93.1, MCH 29.8, MCHC 32.0, RDW 14.9, Plt Count 191, MPV 11.7 H, Neut % (Auto) 78.1, Lymph % (Auto) 10.4, [place] % (Auto) 10.0 H, Eos % (Auto) 1.0, Baso % (Auto) 0.5, Neut # (Auto) 5.9, Lymph # (Auto) 0.8, [place] # (Auto) 0.8, Eos # (Auto) 0.1, Baso # (Auto) 0.0, Sodium 139, Potassium 4.2, Chloride 104, Carbon Dioxide 29, Anion Gap 10.2, BUN 44 H, Creatinine 2.60 H, Estimated Creat Clear 41, Estimated GFR 24 L, Est GFR ( Amer) 30 L, Glucose 117 H, Calcium 9.5, Total Bilirubin 0.7, AST 39, ALT 13, Alkaline Phosphatase 608 H, Troponin I 0.03, Total Protein 7.1, Albumin 4.0, Globulin 3.1, Albumin/Globulin Ratio 1.3 10/12/23 13:03: VBG pH 7.30 L, VBG pCO2 52.6 H, VBG pO2 45.9 H, VBG HCO3 25.0, VBG Total CO2 26.6, VBG O2 Saturation 77.5 H, VBG Base Excess -1.5, VBG Lactic Acid 1.9 10/12/23 12:58 10/12/23 12:58 Orders (Tests/Meds): ED MEDICATIONS Generic Name Dose Route Start Last Admin Trade Name Freq PRN Reason Stop Dose Admin Lactated Ringer's 1,000 mls @ 999 mls/hr 10/12/23 14:44 10/12/23 15:13 Lactated Ringer's 1000 Ml Bag IV 10/12/23 15:44 999 mls/hr .Q1H1M ONE Administration Discontinued Medications Generic Name Dose Route Start Last Admin Trade Name Freq PRN Reason Stop Dose Admin Fentanyl Citrate 100 mcg 10/12/23 12:40 10/12/23 13:03 Fentanyl 100mcg/2ml Vial IV 10/12/23 12:41 Not Given ONCE ONE Ketorolac Tromethamine 15 mg 10/12/23 12:40 10/12/23 13:03 Ketorolac 30mg/Ml Vial IV 10/12/23 12:41 15 mg ONCE ONE Administration ORDERS Category Date Time Status CT abdomen pelvis wo con Stat Cat Scan 10/12/23 11:[address] cervical spine wo con Stat Cat Scan 10/12/23 11:[address] chest wo con Stat Cat Scan 10/12/23 11:[address] head/brain wo con Stat Cat Scan 10/12/23 11:[address] lumbar spine wo con Stat Cat Scan 10/12/23 11:[address] thoracic spine wo con Stat Cat Scan 10/12/23 11:58 Completed Elbow XR right minimum 3 views [XR elbow RT min 3V] Exams 10/12/23 11:58 Taken Stat Humerus XR right [XR humerus RT] Stat Exams 10/12/23 11:58 Taken Shoulder XR right miminum 2 views [XR shoulder RT min Exams 10/12/23 11:58 Taken 2V] Stat XR chest portable Stat Exams 10/12/23 11:58 Completed CBC w/Auto Diff [Complete Blood Count Auto Diff] Stat Lab 10/12/23 12:58 Completed CMP [Comprehensive Metabolic Panel] Stat Lab 10/12/23 12:58 Completed Lactate Venous Stat Lab 10/12/23 13:03 Completed Trop I [Troponin I] Stat Lab 10/12/23 12:58 Completed Troponin I Q3H Lab 10/12/23 15:15 Ordered Troponin I Q3H Lab 10/12/23 18:15 Ordered VBG [Venous Blood Gas] Stat RT 10/12/23 13:03 Completed Medical Decision Narrative: 73-year-old male with history of metastatic malignancy of unknown, ILANA on CPAP and home oxygen at night, paroxysmal A-fib on Xarelto, hypertension, hyperlipidemia, presenting with right-sided shoulder pain. Patient states that he has fallen a couple times in the past 2 days. He landed on the right side of the shoulder not on an outstretched arm. He did hit his head, no loss of consciousness. Stating that he has mild neck pain, right shoulder and right- sided back pain, but has not ambulated since his fall yesterday. Due to severe pain, called the ambulance and had him brought to the emergency department today. Complaining of 10 out of 10 pain in his right shoulder with movement, minimal at rest. History was obtained via conversation with patient. On arrival, patient hemodynamically stable, alert, oriented x4, appropriate, GCS 15, moving all extremities spontaneously, pupils equal and reactive to light. Full physical exam performed and significant for significant tenderness right upper extremity at shoulder, humerus, elbow. Range of motion limited secondary to pain and swelling. Neurovascular intact right upper extremity otherwise. Patient hypoxemic to 85%, cyanotic, pale when I walked into the room. No respiratory distress. 4 L nasal cannula placed on patient was returned to 95% and 1 in color. Differential includes fracture, sprain, strain, dislocation, pneumothorax, rib fractures, neck fracture, intracranial hemorrhage, among other. Patient was given fentanyl and Toradol IV for symptomatic management and correction of underlying abnormalities. Workup independently interpreted and significant for no leukocytosis, mild anemia 12.8. VBG nonactionable. Patient has CKD with creatinine 2.6 with [place]. Calcium normal 9.5, LFTs normal. Troponin is negative. Noncon trauma CT scans significant for widely metastatic, what appears to be multiple myeloma. He has a right sixth rib fracture that is nondisplaced without underlying bony abnormality. He also has a pathologic fracture of his right scapula and transverse process of L1. No intracranial hemorrhage. X-rays of the right upper extremity negative for any acute bony abnormality. See radiology read for full review of final results. On reevaluation, patient resting comfortably in bed. Results were relayed to him and , they were understanding. Patient's states that he is unable to care for himself at home and they are unable to take care of him at home as well, so they may need help placing him. Social work was contacted to discuss case with patient and family and need for placement versus palliative versus hospice. Social work discussed with oncology, oncology and social work as well as family had shared decision making. Patient wanting to go home on home hospice. Local oxygen supplier was contacted for home oxygen, this will be supplied the patient. Patient has room air oxygen saturation of 85% and should be on 3 L nasal cannula at all times at home and everywhere else. Patient was given 1 L of fluids and disposition to home with home hospice to be contacted in the morning. Because patient at baseline without signs or symptoms of clinical decompensation, deemed appropriate for discharge. Results were relayed to patient who voiced understanding and were agreeable to outpatient management and follow up. At the time of discharge the patient was hemodynamically stable, tolerating PO, and mobilizing appropriately. Critical Care Critical Care Time Critical Care Time: Yes (resp) Attestation: On 10/12/23, the high probability of a clinically significant, sudden or life threatening deterioration of the following system(s) required my full and direct attention, intervention and personal management. The time I documented below is in addition to time spent performing reported procedures but includes the following listed in this critical care notation. Total Time Total Critical Care Time: 35
--- NOTE | 2023-10-12 12:44 | PC.NURSE ---
pt arrived back to room from ct
--- NOTE | 2023-10-12 12:57 | PC.NURSE ---
Rounded on patient. Pillow given to support right arm and shoulder. No other needs at this time.
[2023-10-12] MEDS: KETOROLAC 30MG/ML VIAL 15 MG IV (13:03)
[2023-10-12 13:09] LABS: Basophils % 0.5 % (0.1-2.0); Eosinophils # 0.1 K/mm3 (0.0-0.4); Hematocrit 40.1 % (42.0-52.0); Hemoglobin 12.8 g/dL (14.1-18.0); Lymphocytes # 0.8 K/mm3 (0.7-4.5); Lymphocytes % 10.4 % (10-50); Mean Corpuscular Hemoglobin 29.8 pg (27.0-31.2); Mean Corpuscular Volume 93.1 fl (80-94); Mean Platelet Volume 11.7 fl (7.4-10.4); Monocytes # 0.8 K/mm3 (0.1-1.0); Neutrophils # 5.9 K/mm3 (1.8-7.8); Neutrophils % 78.1 % (37.0-80.0); Platelet Count 191 K/mm3 (142-424); Red Cell Distribution Width 14.9 % (11.5-17.5); White Blood Count 7.5 K/mm3 (4.8-10.8)
[2023-10-12 13:14] LABS: Lactate Venous 1.9 mmol/L (0.4-2.0); VBG Base Excess -1.5 mmol/L (-2.4-2.3); VBG Oxygen Saturation 77.5 % (50-70); VBG PCO2 52.6 mmol/L (35-51); VBG PO2 45.9 mmol/L (28-40); VBG Total CO2 26.6 mmol/L (23-27)
--- NOTE | 2023-10-12 13:18 | PC.NURSE ---
aware of [facility] reading
[2023-10-12 13:24] LABS: Chloride 104 mmol/L (98-107)
[2023-10-12 13:25] LABS: Potassium 4.2 mmoL/L (3.5-5.1); Sodium 139 mmol/L (136-145)
[2023-10-12 13:27] LABS: Alanine Aminotransferase 13 U/L (12-78); Alkaline Phosphatase 608 U/L (38-126); Aspartate Amino Transferase 39 U/L (17-59); Bilirubin,Total 0.7 mg/dl (0.2-1.3); Blood Urea Nitrogen 44 mg/dl (9-20); Creatinine Clearance Estimated 41 mL/min (50-200); Estimated Glomerular Filt Rate 24 ml/min (>60); GFR (African American) 30 ML/MIN (>60)
[2023-10-12 13:28] LABS: Albumin/Globulin Ratio 1.3 (1.1-1.8); Anion Gap 10.2 mEq/L (5-15); Calcium 9.5 mg/dl (8.4-10.2); Carbon Dioxide 29 mmol/L (22.0-30.0); Globulin 3.1 g/dL (1.3-3.2); Glucose 117 mg/dl (74-100); Total Protein,Serum 7.1 g/dl (6.3-8.2)
[2023-10-12 13:40] LABS: Troponin I 0.03 ng/ml (0.00-0.034)
--- NOTE | 2023-10-12 14:45 | PC.NURSE ---
care management(lance) at
--- NOTE | 2023-10-12 14:46 | PC.NURSE ---
CM contacted about placement per family request
[2023-10-12] MEDS: LACTATED RINGERS 1000ML 1,000 ML 999 ML IV (15:13)
--- NOTE | 2023-10-12 15:23 | PC.NURSE ---
(lance)social sciences research scientist at
--- NOTE | 2023-10-12 15:25 | PC.NURSE ---
Rounded on patient no needs at this time.
--- NOTE | 2023-10-12 15:26 | PC.NURSE ---
social media marketing specialist and at with family and pt
--- NOTE | 2023-10-12 15:40 | SW/DCPLANNER ---
Addendum entered by Lidya Diaz 10/14/23 10:45: Patient is planned to discharge home today w/ family. Family stated that they prefer to return home and get settled then they will call Hospice to come in. I have updated Mayra harris/ Hospice regarding discharge plans. Patient/family have no further needs at this time. Addendum entered by Lidya Diaz 10/13/23 13:45: Patient/family were able to speak w/ Dr Dickinson this AM: family is leaning more towards discharging home w/ Hospice services at time of discharge. I updated patient/family that patient will be ready for discharge in the AM. Family plans to transport patient home and has equipment needed at home. Mayra harris/ Hospice was onsite this AM to speak w/ family. Family stated they prefer to return home and get settled prior to Hospice coming into home. I will update MD. Original Note: I spoke w/ patient and his family (including , son and daughter) regarding plans for discharge from ED. After a lengthy discussion w/ myself, Oncology nurse (Tanya) and ED MD: decision was made to return home, fax information to [facility] and have Dr Dickinson follow up w/ patient/family via phone in AM. CM will arrange home O2 and portable for patient from [facility]. I will follow up w/ Mayra once information is reviewed. Patient/family are agreeable w/ this discharge plan.
--- NOTE | 2023-10-12 18:01 | PC.NURSE ---
family was concerned and upset about taking pt home and the care they can provide for him and transportation to home. Family reports that they are unable to care for pt at home with the way he is at this time being a total care. states that she is still waiting for all results from his cancer doctor before she makes a decision for him to be on hospice. reports that she was just going to talk to hospice but they didnt want to agree to anything at this time. states she thought he would just come in and get physical therapy to get him back to his baseline that he was at yesterday. aware and family updated that we will call pt doctor for a further plan.
--- NOTE | 2023-10-12 18:12 | PC.NURSE ---
Ciro RN called house for bed request for admission
--- NOTE | 2023-10-12 18:20 | PC.NURSE ---
Family and pt update about admission and the possibility due to limited bed availability upstairs they could be staying in the ER room for a while. FAmily verbalizes they understand, requesting food for pt
--- NOTE | 2023-10-12 18:21 | PC.NURSE ---
called the cafeteria for a protein shake request from the family for pt
--- NOTE | 2023-10-12 18:26 | PC.NURSE ---
Admissions notified of admit for Hypoxia and metastatic disease to . OBS. Pt will board in the ED until a room is available.
--- NOTE | 2023-10-12 18:30 | HMH.EDGENADL ---
Discharge Plan Disposition Patient Disposition: Home, Self-Care Clinical Impressions Clinical Impression: Acute hypoxemic respiratory failure, Pathologic fracture of lumbar vertebra, Pathologic fracture of right scapula, Multiple myeloma Discharge ED Provider: Edison Tavares General Adult HPI General Chief complaint: Fall Stated complaint: Fall Time Seen by Provider: 10/12/23 11:51 Mode of Arrival: EMS Source of Information: Patient and EMS Limitations: No Limitations Description of Symptoms (Recalled from ER Triage Doc. by RN): Patient reports having multiple falls over the past couple of days. Per EMS patient fell 2 days ago and again last night. Patient complaint of right shoulder pain. Denies LOC. Family states the patient has been a little more confused lately than he usually is. Related Data Home Medications Medication Instructions Recorded Confirmed montelukast 10 mg tablet 10 mg PO QPM 05/22/19 10/12/23 pregabalin 75 mg capsule (Lyrica) 75 mg PO BID 05/22/19 10/12/23 carbidopa 25 mg-levodopa 100 mg 1 tab PO TID 03/31/22 10/13/23 tablet cholecalciferol (vitamin D3) 50 50 mcg PO DAILY 03/31/22 10/12/23 mcg (2,000 unit) capsule cyanocobalamin (vitamin B-12) 1,000 mcg PO DAILY 03/31/22 10/12/23 1,000 mcg tablet isosorbide mononitrate 30 mg 30 mg PO DAILY 03/31/22 10/13/23 tablet,extended release 24 hr losartan 100 mg tablet 100 mg PO DAILY 03/31/22 10/12/23 rivaroxaban 20 mg tablet (Xarelto) 20 mg PO DAILY 03/31/22 10/12/23 tamsulosin 0.4 mg capsule 0.4 mg PO HS 03/31/22 10/12/23 colchicine 0.6 mg tablet 0.6 mg PO BID 09/21/23 10/12/23 dapagliflozin propanediol 10 mg 10 mg PO DAILY 10/01/23 10/12/23 tablet (Farxiga) atorvastatin 20 mg tablet 20 mg PO DAILY 10/13/23 10/13/23 carvedilol 6.25 mg tablet 6.25 mg PO BID 10/13/23 10/13/23 furosemide 20 mg tablet 20 mg PO DAILY 10/13/23 10/13/23 melatonin 3 mg tablet 6 mg PO HS 10/13/23 10/13/23 metformin 500 mg tablet 250 mg PO BID 10/13/23 10/13/23 nifedipine 60 mg tablet,extended 60 mg PO DAILY 10/13/23 10/13/23 release oxycodone 5 mg tablet 5 - 10 mg PO Q6 PRN Pain 10/13/23 10/13/23 sertraline 100 mg tablet 100 mg PO DAILY 10/13/23 10/13/23 Previous Rx's Medication Instructions Recorded naproxen 500 mg tablet 500 mg PO BID PRN pain #10 tabs 08/30/23 Allergies Allergy/AdvReac Type Severity Reaction Status Date / Time lisinopril [LISINOPRIL] AdvReac Unknown COUGH Verified 10/04/23 06:53 [facility] Disclaimer: The information contained in this section may have been updated after the patient was seen, as this information can be updated by other users. Medical History A-fib Anxiety Chronic kidney disease CVA (cerebral vascular accident) Depression Edema History of COVID-19 [place] (hard of hearing) Hyperlipemia Hypertension Sleep apnea Surgical History H/O heart bypass surgery History of back surgery History of cataract surgery Family History Other Cancer Coronary artery disease Hyperlipidemia Hypertension Social History Smoking Status: Never smoker alcohol intake: never substance use type: denies use current occupational status: retired Travel in the last 8 weeks: None household members: spouse housing: house marital status: Physical Exam General General appearance: alert and other (Cyanotic, pale) Medical Decision Making Vital Signs: 10/12/23 11:48 10/12/23 11:50 10/12/23 11:51 Temperature 97.9 F Temperature Source Oral Pulse Rate 81 Pulse Rate [Radial] 96 H Respiratory Rate 18 Blood Pressure Blood Pressure [Right Arm] 139/69 Blood Pressure Mean Blood Pressure Mean [Right Arm] 92 Blood Pressure Source [Right Arm] Automatic Cuff Blood Pressure Position [Right Arm] Sitting 02 Sat by Pulse Oximetry 91 L 88 L 96 Oxygen Delivery Method Room Air Nasal Cannula Oxygen Flow Rate (LPM) 4 10/12/23 12:00 10/12/23 12:57 10/12/23 13:00 Temperature Temperature Source Pulse Rate 85 69 68 Pulse Rate [Radial] Respiratory Rate Blood Pressure 136/60 137/65 132/63 Blood Pressure [Right Arm] Blood Pressure Mean Blood Pressure Mean [Right Arm] Blood Pressure Source [Right Arm] Blood Pressure Position [Right Arm] 02 Sat by Pulse Oximetry 95 95 95 Oxygen Delivery Method Nasal Cannula Nasal Cannula Nasal Cannula Oxygen Flow Rate (LPM) 10/12/23 13:31 10/12/23 14:00 10/12/23 14:30 Temperature Temperature Source Pulse Rate 76 81 64 Pulse Rate [Radial] Respiratory Rate Blood Pressure 129/57 L 131/56 L 124/57 L Blood Pressure [Right Arm] Blood Pressure Mean Blood Pressure Mean [Right Arm] Blood Pressure Source [Right Arm] Blood Pressure Position [Right Arm] 02 Sat by Pulse Oximetry 97 97 97 Oxygen Delivery Method Nasal Cannula Nasal Cannula Nasal Cannula Oxygen Flow Rate (LPM) 10/12/23 14:45 10/12/23 15:01 10/12/23 15:30 Temperature Temperature Source Pulse Rate 84 109 H 69 Pulse Rate [Radial] Respiratory Rate Blood Pressure 124/57 L 137/58 L 129/66 Blood Pressure [Right Arm] Blood Pressure Mean 93 92 Blood Pressure Mean [Right Arm] Blood Pressure Source [Right Arm] Blood Pressure Position [Right Arm] 02 Sat by Pulse Oximetry 92 L 83 L 95 Oxygen Delivery Method Oxygen Flow Rate (LPM) 10/12/23 16:00 10/12/23 16:30 10/12/23 17:01 Temperature Temperature Source Pulse Rate 84 65 74 Pulse Rate [Radial] Respiratory Rate Blood Pressure 139/55 L 128/64 131/46 L Blood Pressure [Right Arm] Blood Pressure Mean 95 86 74 Blood Pressure Mean [Right Arm] Blood Pressure Source [Right Arm] Blood Pressure Position [Right Arm] 02 Sat by Pulse Oximetry 97 92 L 93 L Oxygen Delivery Method Nasal Cannula Nasal Cannula Nasal Cannula Oxygen Flow Rate (LPM) 10/12/23 18:01 Temperature Temperature Source Pulse Rate 78 Pulse Rate [Radial] Respiratory Rate Blood Pressure 143/73 H Blood Pressure [Right Arm] Blood Pressure Mean Blood Pressure Mean [Right Arm] Blood Pressure Source [Right Arm] Blood Pressure Position [Right Arm] 02 Sat by Pulse Oximetry 96 Oxygen Delivery Method Room Air Oxygen Flow Rate (LPM) Lab Data Lab Results 10/12/23 12:58: WBC 7.5, RBC 4.30 L, Hgb 12.8 L, Hct 40.1 L, MCV 93.1, MCH 29.8, MCHC 32.0, RDW 14.9, Plt Count 191, MPV 11.7 H, Neut % (Auto) 78.1, Lymph % (Auto) 10.4, [place] % (Auto) 10.0 H, Eos % (Auto) 1.0, Baso % (Auto) 0.5, Neut # (Auto) 5.9, Lymph # (Auto) 0.8, [place] # (Auto) 0.8, Eos # (Auto) 0.1, Baso # (Auto) 0.0, Sodium 139, Potassium 4.2, Chloride 104, Carbon Dioxide 29, Anion Gap 10.2, BUN 44 H, Creatinine 2.60 H, Estimated Creat Clear 41, Estimated GFR 24 L, Est GFR ( Amer) 30 L, Glucose 117 H, Calcium 9.5, Total Bilirubin 0.7, AST 39, ALT 13, Alkaline Phosphatase 608 H, Troponin I 0.03, Total Protein 7.1, Albumin 4.0, Globulin 3.1, Albumin/Globulin Ratio 1.3 10/12/23 13:03: VBG pH 7.30 L, VBG pCO2 52.6 H, VBG pO2 45.9 H, VBG HCO3 25.0, VBG Total CO2 26.6, VBG O2 Saturation 77.5 H, VBG Base Excess -1.5, VBG Lactic Acid 1.9 10/12/23 12:58 10/12/23 12:58 Orders (Tests/Meds): ED MEDICATIONS Generic Name Dose Route Start Last Admin Trade Name Freq PRN Reason Stop Dose Admin Acetaminophen 650 mg 10/12/23 20:42 Acetaminophen 325mg Tab PO 11/11/23 20:41 Q6HP PRN Mild Pain (1-3) Carbidopa/Levodopa 1 each 10/12/23 21:00 10/12/23 21:42 Carbidopa/Levodopa 25/100mg Tablet PO 11/11/23 20:59 1 each BID BELLA Administration Carvedilol 6.25 mg 10/13/23 09:00 Carvedilol 6.25mg Tablet PO 11/12/23 08:59 BID [facility] Irbesartan 150 mg 10/13/23 09:00 Irbesartan 150mg Tab PO 11/12/23 08:59 DAILY [facility] Isosorbide Mononitrate 30 mg 10/13/23 09:00 Isosorbide [place] 30mg Tab.Er.24h PO 11/12/23 08:59 DAILY [facility] Naproxen 500 mg 10/12/23 20:43 Naproxen 500mg Tablet PO 11/11/23 20:42 BIDP PRN Mild Pain (1-3) Oxycodone HCl 5 mg 10/13/23 07:36 Oxycodone 5mg Immediate Release Tablet PO 11/11/23 20:42 Q6HP PRN Moderate Pain (4-6) Pregabalin 75 mg 10/13/23 09:00 Pregabalin 25mg Capsule PO 11/12/23 08:59 BID [facility] Rivaroxaban 15 mg 10/13/23 17:30 Rivaroxaban 15mg Tablet PO 11/12/23 17:29 QPMWITHMEAL [facility] Sertraline HCl 100 mg 10/13/23 09:00 Sertraline 100mg Tablet PO 11/12/23 08:59 DAILY [facility] Tamsulosin HCl 0.4 mg 10/12/23 21:00 10/12/23 21:43 Tamsulosin 0.4mg Capsule PO 11/11/23 20:59 0.4 mg HS [facility] Administration Vitamin D 50 mcg 10/13/23 09:00 Cholecalciferol 1,000 Units (25mcg) Tablet PO 11/12/23 08:59 DAILY [facility] Discontinued Medications Generic Name Dose Route Start Last Admin Trade Name Freq PRN Reason Stop Dose Admin Carvedilol 6.25 mg 10/12/23 21:00 10/12/23 21:43 Carvedilol 25mg Tablet PO 11/11/23 20:59 6.25 mg BID [facility] Administration Fentanyl Citrate 100 mcg 10/12/23 12:40 10/12/23 13:03 Fentanyl 100mcg/2ml Vial IV 10/12/23 12:41 Not Given ONCE ONE Lactated Ringer's 1,000 mls @ 999 mls/hr 10/12/23 14:44 10/12/23 15:13 Lactated Ringer's 1000 Ml Bag IV 10/12/23 15:44 999 mls/hr .Q1H1M ONE Administration Ketorolac Tromethamine 15 mg 10/12/23 12:40 10/12/23 13:03 Ketorolac 30mg/Ml Vial IV 10/12/23 12:41 15 mg ONCE ONE Administration Non-Formulary Medication 1,000 mcg 10/13/23 09:00 Cyanocobalamin (Vitamin B-12) PO 11/12/23 08:59 DAILY BELLA Non-Formulary Medication 75 mg 10/12/23 21:00 10/12/23 21:43 Pregabalin [Lyrica] PO 11/11/23 20:59 75 mg BID BELLA Administration Oxycodone HCl 0 mg 10/12/23 20:43 10/12/23 23:28 Oxycodone 5mg Immediate Release Tablet PO 11/11/23 20:42 5 mg Q6H PRN Administration pain ORDERS Category Date Time Status CT abdomen pelvis wo con Stat Cat Scan 10/12/23 11:[address] cervical spine wo con Stat Cat Scan 10/12/23 11:[address] chest wo con Stat Cat Scan 10/12/23 11:[address] head/brain wo con Stat Cat Scan 10/12/23 11:[address] lumbar spine wo con Stat Cat Scan 10/12/23 11:[address] thoracic spine wo con Stat Cat Scan 10/12/23 11:58 Completed Elbow XR right minimum 3 views [XR elbow RT min 3V] Exams 10/12/23 11:58 Taken Stat Humerus XR right [XR humerus RT] Stat Exams 10/12/23 11:58 Taken Shoulder XR right miminum 2 views [XR shoulder RT min Exams 10/12/23 11:58 Taken 2V] Stat XR chest portable Stat Exams 10/12/23 11:58 Completed CBC w/Auto Diff [Complete Blood Count Auto Diff] Stat Lab 10/12/23 12:58 Completed CMP [Comprehensive Metabolic Panel] Stat Lab 10/12/23 12:58 Completed Lactate Venous Stat Lab 10/12/23 13:03 Completed Trop I [Troponin I] Stat Lab 10/12/23 12:58 Completed VBG [Venous Blood Gas] Stat RT 10/12/23 13:03 Completed
--- NOTE | 2023-10-12 18:30 | PC.NURSE ---
PT WAS GIVEN A URINAL. KIMBERLY ORDERED A PROTEIN SHAKE FOR PT PER FAMILY'S REQUEST.. NO OTHER NEEDS AT THIS TIME,CALL LIGHT IN REACH
--- NOTE | 2023-10-12 18:52 | PC.NURSE ---
PT WAS PLACED ON BEDPAN WITH ASSISTANCE FROM RN WILBERT AND BETHANY
--- NOTE | 2023-10-12 19:58 | PC.NURSE ---
report called to ANU Pryor
[2023-10-12] MEDS: CARBIDOPA/LEVODOPA 25/100MG TABLET 1 EACH PO (21:42)
[2023-10-12] MEDS: TAMSULOSIN 0.4MG CAPSULE 0.400000000000000022 MG PO (21:43)
[2023-10-12] MEDS: PREGABALIN 75 MG 75 EACH PO (21:43)
[2023-10-12] MEDS: CARVEDILOL 25MG TABLET 6.25 MG PO (21:43)
--- NOTE | 2023-10-12 22:05 | PC.NURSE ---
patient is in room and settled for the night. He had a bed bath upon admission. Denies pain unless rolling. BA on for safety r/t numerous falls at home. Daughter, Marlene, at bedside for the night. Patient is pleasantly confused - able to give name, , and voice pain, but is seeing geese and other objects that are not present. COFFEE ROASTER was added to patient's finger to monitor oxygen saturation. Patient is currently on 3L NC with sats >90. Male purewick in place for toileting tonight.
[2023-10-12] MEDS: OXYCODONE 5MG IMMEDIATE RELEASE TABLET PO (23:28)
--- NOTE | 2023-10-12 23:30 | PC.NURSE ---
patient c/o of hip and right shoulder pain - TX per MAR
[2023-10-13 04:00] VITALS: BP 136/72; PULSE 61; RESP 17; TEMP 36.6; O2SAT 95; BMI 33.1
[2023-10-13 08:00] VITALS: BP 136/45; PULSE 61; RESP 16; TEMP 36.8; O2SAT 97
--- NOTE | 2023-10-13 08:08 | HMH.PHAINT1 ---
Pharmacy Intervention Comments: Confirmed home medications using external fill history from pharmacy.
--- NOTE | 2023-10-13 08:25 | PC.NURSE ---
Patient sleeping soundly. Patient's family requests to defer assessment until patient wakes up. Extra chair provided to family. Family denies further needs
--- NOTE | 2023-10-13 08:38 | P.HP_ITS ---
History of Present Illness *Admission Date: 10/12/23 *Reason for visit:: weakness, hypoxia *History of present illness: 73-year-old male with history of metastatic malignancy of unknown, ILANA on CPAP and home oxygen at night, paroxysmal A-fib on Xarelto, hypertension, hyperlipidemia, presenting with right-sided shoulder pain. Patient states that he has fallen a couple times in the past 2 days. He landed on the right side of the shoulder not on an outstretched arm. He did hit his head, no loss of consciousness. Stating that he has mild neck pain, right shoulder and right- sided back pain, but has not ambulated since his fall yesterday. Due to severe pain, called the ambulance and had him brought to the emergency department today. Complaining of 10 out of 10 pain in his right shoulder with movement, minimal at rest. History was obtained via conversation with patient. On arrival, patient hemodynamically stable, alert, oriented x4, appropriate, GCS 15, moving all extremities spontaneously, pupils equal and reactive to light. Full physical exam performed and significant for significant tenderness right upper extremity at shoulder, humerus, elbow. Range of motion limited secondary to pain and swelling. Neurovascular intact right upper extremity otherwise. Patient hypoxemic to 85%, cyanotic, pale when I walked into the room. No respiratory distress. 4 L nasal cannula placed on patient was returned to 95% and 1 in color. Differential includes fracture, sprain, strain, dislocation, pneumothorax, rib fractures, neck fracture, intracranial hemorrhage, among other. Patient was given fentanyl and Toradol IV for symptomatic management and correction of underlying abnormalities. Workup independently interpreted and significant for no leukocytosis, mild anemia 12.8. VBG nonactionable. Patient has CKD with creatinine 2.6 with [place]. Calcium normal 9.5, LFTs normal. Troponin is negative. Noncontrast CT scans significant for widely metastatic, what appears to be multiple myeloma. He has a right sixth rib fracture that is nondisplaced without underlying bony abnormality. He also has a pathologic fracture of his right scapula and transverse process of L1. No intracranial hemorrhage. X-rays of the right upper extremity negative for any acute bony abn ormality. See radiology read for full review of final results. On reevaluation, patient resting comfortably in bed. Results were relayed to him and , they were understanding. Patient's states that he is unable to care for himself at home and they are unable to take care of him at home as well, so they may need help placing him. Social work was contacted to discuss case with patient and family and need for placement versus palliative versus hospice. Social work discussed with oncology, oncology and social work as well as family had shared decision making. Patient wanting to go home on home hospice. Local oxygen supplier was contacted for home oxygen, this will be supplied the patient. Patient has room air oxygen saturation of 85% and should be on 3 L nasal cannula at all times at home and everywhere else. Patient was given 1 L of fluids and disposition to home with home hospice to be contacted in the morning. Because patient at baseline without signs or symptoms of clinical decompensation, deemed appropriate for discharge. Results were relayed to patient who voiced understanding and were agreeable to outpatient management and follow up. At the time of discharge the patient was hemodynamically stable, tolerating PO, and mobilizing appropriately. Social work has evaluated the patient and patient set up for hospice. While awaiting discharge, family has decided the they are unable to care for patient at home given his morbidities. Given this I did consult with hospital medicine and they have agreed to evaluate and admit for further management. (above as per ER physician) [facility] Disclaimer: The information contained in this section may have been updated after the patient was seen, as this information can be updated by other users. Medical History (Updated 10/13/23 @ 08:54 by NAYANA Holly) Multiple lesions of metastatic malignancy Multiple myeloma Depression Anxiety [place] (hard of hearing) Hyperlipemia Hypertension A-fib Chronic kidney disease Sleep apnea History of COVID-19 Edema CVA (cerebral vascular accident) Surgical History History of cataract surgery History of back surgery H/O heart bypass surgery Family History Coronary artery disease Hyperlipidemia Cancer Hypertension Social History Smoking Status: Never smoker alcohol intake: never substance use type: denies use current occupational status: retired Travel in the last 8 weeks: None household members: spouse housing: house marital status: Review of Systems Constitutional Constitutional: Reports fatigue, Reports frequent falls and Reports weakness Eyes Eyes: Denies blurry vision and Denies diplopia ENT Ears, Nose, Mouth, and Throat: Denies nasal congestion and Denies sore throat *Cardiovascular Cardiovascular: Denies chest pain and Reports dyspnea *Respiratory Respiratory: Denies cough and Reports dyspnea *Gastrointestinal Gastrointestinal: Denies abdominal pain, Denies diarrhea, Denies nausea and Denies vomiting *Genitourinary Genitourinary: Denies difficulty urinating and Denies dysuria *Musculoskeletal Musculoskeletal: Reports arthralgias (right shoulder) and Reports back pain *Neurologic Neurologic: Reports confusion, Reports frequent falls and Reports weakness Psychiatric Psychiatric: Reports confusion Endocrine Endocrine: Reports fatigue Meds Home Medications and Allergies Home Medications Medication Instructions Recorded Confirmed Type montelukast 10 mg tablet 10 mg PO QPM 05/22/19 10/12/23 History pregabalin 75 mg capsule (Lyrica) 75 mg PO BID 05/22/19 10/12/23 History carbidopa 25 mg-levodopa 100 mg 1 tab PO TID 03/31/22 10/13/23 History tablet cholecalciferol (vitamin D3) 50 50 mcg PO DAILY 03/31/22 10/12/23 History mcg (2,000 unit) capsule cyanocobalamin (vitamin B-12) 1,000 mcg PO DAILY 03/31/22 10/12/23 History 1,000 mcg tablet isosorbide mononitrate 30 mg 30 mg PO DAILY 03/31/22 10/13/23 History tablet,extended release 24 hr losartan 100 mg tablet 100 mg PO DAILY 03/31/22 10/12/23 History rivaroxaban 20 mg tablet (Xarelto) 20 mg PO DAILY 03/31/22 10/12/23 History tamsulosin 0.4 mg capsule 0.4 mg PO HS 03/31/22 10/12/23 History naproxen 500 mg tablet 500 mg PO BID PRN pain #10 tabs 08/30/23 10/12/23 Rx colchicine 0.6 mg tablet 0.6 mg PO BID 09/21/23 10/12/23 History dapagliflozin propanediol 10 mg 10 mg PO DAILY 10/01/23 10/12/23 History tablet (Farxiga) atorvastatin 20 mg tablet 20 mg PO DAILY 10/13/23 10/13/23 History carvedilol 6.25 mg tablet 6.25 mg PO BID 10/13/23 10/13/23 History furosemide 20 mg tablet 20 mg PO DAILY 10/13/23 10/13/23 History melatonin 3 mg tablet 6 mg PO HS 10/13/23 10/13/23 History metformin 500 mg tablet 250 mg PO BID 10/13/23 10/13/23 History nifedipine 60 mg tablet,extended 60 mg PO DAILY 10/13/23 10/13/23 History release oxycodone 5 mg tablet 5 - 10 mg PO Q6 PRN Pain 10/13/23 10/13/23 History sertraline 100 mg tablet 100 mg PO DAILY 10/13/23 10/13/23 History New Prescriptions to Start Prescriptions: Allergies Allergy/AdvReac Type Severity Reaction Status Date / Time lisinopril [LISINOPRIL] AdvReac Unknown COUGH Verified 10/04/23 06:53 Exam Data for Last 24 hours Vital signs and Labs for Last 24 Hours: Temp Pulse Resp BP Pulse Ox O2 Del Method O2 Flow Rate 97.8 F 61 17 136/72 95 Nasal Cannula 3 10/13/23 04:00 10/13/23 04:00 10/13/23 04:00 10/13/23 04:00 10/13/23 04:00 10/13/23 06:30 10/13/23 06:30 Laboratory Results - last 24 hr 10/12/23 12:58: WBC 7.5, RBC 4.30 L, Hgb 12.8 L, Hct 40.1 L, MCV 93.1, MCH 29.8, MCHC 32.0, RDW 14.9, Plt Count 191, MPV 11.7 H, Neut % (Auto) 78.1, Lymph % (Auto) 10.4, [place] % (Auto) 10.0 H, Eos % (Auto) 1.0, Baso % (Auto) 0.5, Neut # (Auto) 5.9, Lymph # (Auto) 0.8, [place] # (Auto) 0.8, Eos # (Auto) 0.1, Baso # (Auto) 0.0, Sodium 139, Potassium 4.2, Chloride 104, Carbon Dioxide 29, Anion Gap 10.2, BUN 44 H, Creatinine 2.60 H, Estimated Creat Clear 41, Estimated GFR 24 L, Est GFR ( Amer) 30 L, Glucose 117 H, Calcium 9.5, Total Bilirubin 0.7, AST 39, ALT 13, Alkaline Phosphatase 608 H, Troponin I 0.03, Total Protein 7.1, Albumin 4.0, Globulin 3.1, Albumin/Globulin Ratio 1.3 10/12/23 13:03: VBG pH 7.30 L, VBG pCO2 52.6 H, VBG pO2 45.9 H, VBG HCO3 25.0, VBG Total CO2 26.6, VBG O2 Saturation 77.5 H, VBG Base Excess -1.5, VBG Lactic Acid 1.9 I & O for Last 24 hours: Intake & Output 10/10/23 10/11/23 10/12/23 10/13/23 11:59 11:59 11:59 11:59 Intake Total Output Total 500 / 500 Balance -470 / -470 Weight 250 lb 249 lb 15.997 oz Constitutional Constitutional: no acute distress *Routine HEENT Exam Head: Present normocephalic and atraumatic Eye: Present EOMI and PERRL ENT: Present mucous membranes dry *Routine Neck Exam Neck: Present supple and full ROM *Routine Respiratory Exam Respiratory: Present CTA bilaterally *Routine Cardiovascular Exam Cardiovascular: Present RRR *Routine Abdominal Exam Abdominal: Present soft and normoactive bowel sounds; Absent tenderness *Routine Rectal Exam Rectal:: deferred *Routine Genitalia Exam Genitalia:: deferred *Routine Extremities Exam Extremities: Absent cyanosis, clubbing or edema Comments: pain in right shoulder with movement *Routine Skin Exam Skin: Present intact; Absent erythema *Routine Neurological Exam Neurological: Present alert and oriented X3 H&P: Result Impressions Cervical spine CT - No evidence of fracture. Multiple new and worsening lytic foci consistent with myeloma or metastatic disease. Head CT - Atrophy and mild periventricular chronic ischemic changes. No acute intracranial abnormality identified. Abdominal/Pelvic CT - Worsening bony masses consistent with worsening metastatic disease or myeloma. Multiple hepatic masses consistent with metastatic disease. Bilateral complex renal cysts. Diverticulosis. Chest CT - Right lateral 6 nondisplaced rib fracture. Nondisplaced fracture right scapular bone. Multiple lytic areas consistent with myeloma or metastatic disease in the thoracic vertebrae. CXR - Bibasilar pulmonary opacities favored to represent atelectasis. Lumbar Spine CT - Pathologic fracture L1 transverse process. No other fracture seen. Multiple lytic lesions consistent with myeloma or metastatic disease. Thoracic Spine CT - No acute fracture seen. Lytic lesions consistent with myeloma or metastatic disease. Assessment and Plan *Assessment and plan (1) Acute hypoxemic respiratory failure: Status: Acute Category: Medical Code(s): J96.01 - Acute respiratory failure with hypoxia (2) Right scapula fracture: Status: Acute Category: Medical Code(s): S42.101A - Fracture of unspecified part of scapula, right shoulder, initial encounter for closed fracture (3) Right rib fracture: Status: Acute Category: Medical Code(s): S22.31XA - Fracture of one rib, right side, initial encounter for closed fracture (4) Pathologic fracture of lumbar vertebra: Status: Acute Category: Medical Code(s): M84.48XA - Pathological fracture, other site, initial encounter for fracture (5) Multiple myeloma: Status: Acute Category: Medical Code(s): C90.00 - Multiple myeloma not having achieved remission (6) Multiple lesions of metastatic malignancy: Status: Acute Category: Medical Code(s): C79.9 - Secondary malignant neoplasm of unspecified site (7) Paroxysmal A-fib: Problem Comment: Currently normal sinus rhythm on Eliquis Status: Acute Category: Medical Code(s): I48.0 - Paroxysmal atrial fibrillation (8) Nocturnal hypoxemia: Status: Chronic Category: Medical Code(s): G47.34 - Idiopathic sleep related nonobstructive alveolar hypoventilation (9) ILANA on CPAP: Status: Chronic Category: Medical Code(s): G47.33 - Obstructive sleep apnea (adult) (pediatric); Z99.89 - Dependence on other enabling machines and devices (10) Hypertension: Problem Comment: Normotensive Status: Acute Qualifiers: Hypertension type: unspecified Qualified Code(s): I10 - Essential (primary) hypertension Category: Medical Code(s): I10 - Essential (primary) hypertension (11) Intraparenchymal hemorrhage of brain: Problem Comment: Left hemisphere subcortical hemorrhagic CVA, 09/2020 currently on best medical therapy including and Eliquis, ARB's, statins Status: Acute Category: Medical Code(s): I61.9 - Nontraumatic intracerebral hemorrhage, unspecified Plan Will consult ortho for the right scapular fracture. Patient is still on oxygen with satisfactory oxygen sats. Case management has spoken with Dr. Dickinson and he will discuss further care with the patient. Will likely need hospice
--- NOTE | 2023-10-13 10:00 | HMH.PTEV ---
Physical Therapy Evaluation Rehab PT IP Evaluation Start: 10/13/23 08:58 Freq: ONCE Status: Active Protocol: Document 10/13/23 09:53 SEAN (Rec: 10/13/23 09:59 SEAN [email or web address]) Subjective/History History History Per H&P: 73-year-old male with history of metastatic malignancy of unknown, ILANA on CPAP and home oxygen at night, paroxysmal A- fib on Xarelto, hypertension, hyperlipidemia, presenting with right-sided shoulder pain . Patient states that he has fallen a couple times in the past 2 days. He landed on the right side of the shoulder not on an outstretched arm. He did hit his head, no loss of consciousness. Stating that he has mild neck pain, right shoulder and right-sided back pain, but has not ambulated since his fall yesterday. Due to severe pain , called the ambulance and had him brought to the emergency department today. Complaining of 10 out of 10 pain in his right shoulder with movement, minimal at rest. History was obtained via conversation with patient. On arrival, patient hemodynamically stable, alert, oriented x4, appropriate, GCS 15, moving all extremities spontaneously, pupils equal and reactive to light. Full physical exam performed and significant for significant tenderness right upper extremity at shoulder, humerus , elbow. Range of motion limited secondary to pain and swelling. Neurovascular intact right upper extremity otherwise. Patient hypoxemic to 85%, cyanotic, pale when I walked into the room. No respiratory distress. 4 L nasal cannula placed on patient was returned to 95% and 1 in color. Differential includes fracture, sprain, strain, dislocation, pneumothorax, rib fractures, neck fracture, intracranial hemorrhage, among other. Subjective Subjective PLOF per family report: Uses w /c for community distances and ambulating with RW short distances. Lives in ramped enterance single story home . Pt reports 8/10 pain in R shoulder. New diagnosis of cancer in past 12 Yes months? Rehab PT IP Eval Objective Appearance Patient Behavior Appropriate,Cooperative Patient Orientation Person,Birthday Difficulty following instructions none Speech Pattern Mumbled Ambulation Patient Able to Ambulate No Balance Ability to Arise Unable Sitting Balance Leans or slides in chair Transfers Bed Transfer Ability Maximum x 2 (75% assist) Rehab PT IP prob,goals,plan Problems Date of Evaluation: 10/13/23 PT IP Problems Bed Mobility,Transfers,Gait, Balance,Self care,Safety Rehab Potential Rehab Potential Fair Equipment Needs Assistive Devices Rolling / Wheeled Walker, Wheelchair Plan PT Intervention Plan Bed Mobility,Transfers,Gait, Balance,Safety,Therapeutic Exercise Other Intervention Plan 1-2 times PT Plan Frequency Daily Duration LOS Discharge Goals Bed Transfer Ability Moderate x 1 (50% assist) Sit to Stand Chair Transfer Ability Maximum x 2 (75% assist) Discharge Plan PT Discharge Plan Pt not safe to return home at this time d/t current level of functional mobility. PT recommending short-term rehabilitation stay upon d/c from [facility]. Pt would benefit from skilled PT while at [facility] to prevent further functional decline and maximize safety with mobility. Eval Complexity Eval Charge Codes 53879 - High Complexity PHYSICIAN CERTIFICATION: I certify the specified therapy services for Nelson Kohler are required, authorized, and reviewed every 30 days.
[2023-10-13 10:05] VITALS: O2SAT 3
[2023-10-13] MEDS: LOSARTAN 100 MG 1 EACH PO (10:50)
[2023-10-13] MEDS: CARVEDILOL 6.25 MG PO ×2 (10:51→20:46)
[2023-10-13] MEDS: SERTRALINE 100 MG PO (10:52)
[2023-10-13] MEDS: VITAMIN B12 1000 MCG 1 EACH PO (10:53)
[2023-10-13] MEDS: VITAMIN D3 50 MCG 1 EACH PO (10:54)
--- NOTE | 2023-10-13 11:00 | PC.NURSE ---
Patient states right upper back/arm only hurts when moving it. Declines pain medication at this time. Patient and family state understanding of prn medications and need to request when desired
[2023-10-13] MEDS: SODIUM CHLORIDE 0.45 % 1,000 ML 125 ML IV (11:06)
[2023-10-13] MEDS: PREGABALIN 25MG CAPSULE 75 MG PO ×2 (11:06→20:46)
--- NOTE | 2023-10-13 11:17 | HMH.OTEV ---
OT Inpatient Evaluation Rehab OT IP Evaluation Start: 10/13/23 08:58 Freq: ONCE Status: Active Protocol: Document 10/13/23 11:11 MARIELA (Rec: 10/13/23 11:17 [facility] [id number]) Rehab OT IP Assessment Subjective History Pt oriented x 3 on arrival. Pt agreeable to engage in therapy session. Pt's family present and supportive during evaluation. Pt admitted on 07/25 due to fall at home and weakness. History and physical report: Per H&P: 73-year-old male with history of metastatic malignancy of unknown, ILANA on CPAP and home oxygen at night, paroxysmal A- fib on Xarelto, hypertension, hyperlipidemia, presenting with right-sided shoulder pain . Patient states that he has fallen a couple times in the past 2 days. He landed on the right side of the shoulder not on an outstretched arm. He did hit his head, no loss of consciousness. Stating that he has mild neck pain, right shoulder and right-sided back pain, but has not ambulated since his fall yesterday. Due to severe pain , called the ambulance and had him brought to the emergency department today. Complaining of 10 out of 10 pain in his right shoulder with movement, minimal at rest. History was obtained via conversation with patient. On arrival, patient hemodynamically stable, alert, oriented x4, appropriate, GCS 15, moving all extremities spontaneously, pupils equal and reactive to light. Full physical exam performed and significant for significant tenderness right upper extremity at shoulder, humerus , elbow. Range of motion limited secondary to pain and swelling. Neurovascular intact right upper extremity otherwise. Patient hypoxemic to 85%, cyanotic, pale when I walked into the room. No respiratory distress. 4 L nasal cannula placed on patient was returned to 95% and 1 in color. Differential includes fracture, sprain, strain, dislocation, pneumothorax, rib fractures, neck fracture, intracranial hemorrhage, among other. Subjective I am just really weak. PLOF per family report: Uses w /c for community distances and ambulating with RW short distances. Lives in ramped enterance single story home . Pt reports 8/10 pain in R shoulder. Pt also claims to have been independent with ADLs such as dressing, feeding , and bathing. However he was dependent upon family for completion of IADLs. Objective Patient Orientation Person,Place,Birthday Right Upper Extremity Gross ROM Sev Limitation >75% Left Upper Extremity Gross ROM WFL Shoulder ROM Limitations Muscle Weakness,Pain Elbow ROM Limitations Muscle Weakness,Pain Wrist Limitations of Range of Motion Muscle Weakness,Pain Bed Mobility bed mobility-scooting,bed mobility - supine/sit Assist Level Maximum x 2 (75% assist) Rehab OT IP prob,goals,plan Problems Date of Evaluation: 10/13/23 OT IP Problems Bed Mobility,Transfers,Balance ,Self care,Safety Rehab Potential Rehab Potential Good Equipment Needs Assistive Devices Rolling / Wheeled Walker, Wheelchair Plan OT intervention Plan Bed Mobility,Transfers,Balance ,Self care,Safety,Therapeutic Exercise OT Plan Frequency Daily Duration LOS Discharge Goals Bed Mobility Ability Assistance x1 Sit to Stand Chair Transfer Ability Moderate x 1 (50% assist) Chair Transfer Ability Moderate x 1 (50% assist) Chair Transfer Technique Sit to/from Ambulatory Chair Transfer Assistive Devices Rolling Walker Feeding Ability Assist with Tray Set Up Lower Body Dressing Ability Moderate Assistance Upper Body Dressing Ability Minimal Assistance Bathing Ability Moderate Assistance Performing Toilet Hygiene Ability Moderate Assistance Overall Commode/Toilet Transfer Ability Moderate Assistance Commode/Toilet Transfer Technique Sit to/from Ambulatory Commode/Toilet Transfer Assistive Grab Bars Devices Oral Care Assist Standby Assistance,Contact Guard Decrease in Endurance Yes Discharge Plan OT Discharge Plan Pt will continue to be seen for OT services while at [facility]. Pt would benefit most from short term rehab at [facility] following discharge. This is important for patient to continued skilled therapy to improve strength, safety, endurance, ADL independence, and functional transfers to reach PLOF. Eval Complexity Eval Charge Codes 03040 - Moderate Complexity PHYSICIAN CERTIFICATION: I certify the specified therapy services for Nelson Kohler are required, authorized, and reviewed every 30 days.
--- NOTE | 2023-10-13 14:00 | P.CONS_ITS ---
History of Present Illness *Admission Date: 10/12/23 *History of present illness: 73-year-old male with history of metastatic malignancy of unknown, ILANA on CPAP and home oxygen at night, paroxysmal A-fib on Xarelto, hypertension, hyperlipidemia, presenting with right-sided shoulder pain. Patient states that he has fallen a couple times in the past 2 days. He landed on the right side of the shoulder not on an outstretched arm. He did hit his head, no loss of consciousness. Stating that he has mild neck pain, right shoulder and right- sided back pain, but has not ambulated since his fall yesterday. Due to severe pain, called the ambulance and had him brought to the emergency department today. Complaining of 10 out of 10 pain in his right shoulder with movement, minimal at rest. History was obtained via conversation with patient. On arrival, patient hemodynamically stable, alert, oriented x4, appropriate, GCS 15, moving all extremities spontaneously, pupils equal and reactive to light. Full physical exam performed and significant for significant tenderness right upper extremity at shoulder, humerus, elbow. Range of motion limited secondary to pain and swelling. Neurovascular intact right upper extremity otherwise. Patient hypoxemic to 85%, cyanotic, pale when I walked into the room. No respiratory distress. 4 L nasal cannula placed on patient was returned to 95% and 1 in color. Differential includes fracture, sprain, strain, dislocation, pneumothorax, rib fractures, neck fracture, intracranial hemorrhage, among other. Patient was given fentanyl and Toradol IV for symptomatic management and correction of underlying abnormalities. Workup independently interpreted and significant for no leukocytosis, mild anemia 12.8. VBG nonactionable. Patient has CKD with creatinine 2.6 with [place]. Calcium normal 9.5, LFTs normal. Troponin is negative. Noncontrast CT scans significant for widely metastatic, what appears to be multiple myeloma. He has a right sixth rib fracture that is nondisplaced without underlying bony abnormality. He also has a pathologic fracture of his right scapula and transverse process of L1. No intracranial hemorrhage. X-rays of the right upper extremity negative for any acute bony abnormality. See radiology read for full review of final results. Orthopedic consulted regarding right scapular fracture treatment options [facility] Disclaimer: The information contained in this section may have been updated after the patient was seen, as this information can be updated by other users. Medical History (Updated 10/13/23 @ 08:54 by NAYANA Holly) Multiple lesions of metastatic malignancy Multiple myeloma Depression Anxiety [place] (hard of hearing) Hyperlipemia Hypertension A-fib Chronic kidney disease Sleep apnea History of COVID-19 Edema CVA (cerebral vascular accident) Surgical History History of cataract surgery History of back surgery H/O heart bypass surgery Family History Coronary artery disease Hyperlipidemia Cancer Hypertension Social History Smoking Status: Never smoker alcohol intake: never substance use type: denies use current occupational status: retired Travel in the last 8 weeks: None household members: spouse housing: house marital status: Review of Systems Constitutional Constitutional: Reports frequent falls and Reports weakness *Neurologic Neurologic: Reports confusion, Reports frequent falls and Reports weakness Psychiatric Psychiatric: Reports confusion Meds Home Medications and Allergies Home Medications Medication Instructions Recorded Confirmed Type montelukast 10 mg tablet 10 mg PO QPM 05/22/19 10/12/23 History pregabalin 75 mg capsule (Lyrica) 75 mg PO BID 05/22/19 10/12/23 History carbidopa 25 mg-levodopa 100 mg 1 tab PO TID 03/31/22 10/13/23 History tablet cholecalciferol (vitamin D3) 50 50 mcg PO DAILY 03/31/22 10/12/23 History mcg (2,000 unit) capsule cyanocobalamin (vitamin B-12) 1,000 mcg PO DAILY 03/31/22 10/12/23 History 1,000 mcg tablet isosorbide mononitrate 30 mg 30 mg PO DAILY 03/31/22 10/13/23 History tablet,extended release 24 hr losartan 100 mg tablet 100 mg PO DAILY 03/31/22 10/12/23 History rivaroxaban 20 mg tablet (Xarelto) 20 mg PO DAILY 03/31/22 10/12/23 History tamsulosin 0.4 mg capsule 0.4 mg PO HS 03/31/22 10/12/23 History naproxen 500 mg tablet 500 mg PO BID PRN pain #10 tabs 08/30/23 10/12/23 Rx colchicine 0.6 mg tablet 0.6 mg PO BID 09/21/23 10/12/23 History dapagliflozin propanediol 10 mg 10 mg PO DAILY 10/01/23 10/12/23 History tablet (Farxiga) atorvastatin 20 mg tablet 20 mg PO DAILY 10/13/23 10/13/23 History carvedilol 6.25 mg tablet 6.25 mg PO BID 10/13/23 10/13/23 History furosemide 20 mg tablet 20 mg PO DAILY 10/13/23 10/13/23 History melatonin 3 mg tablet 6 mg PO HS 10/13/23 10/13/23 History metformin 500 mg tablet 250 mg PO BID 10/13/23 10/13/23 History nifedipine 60 mg tablet,extended 60 mg PO DAILY 10/13/23 10/13/23 History release oxycodone 5 mg tablet 5 - 10 mg PO Q6 PRN Pain 10/13/23 10/13/23 History sertraline 100 mg tablet 100 mg PO DAILY 10/13/23 10/13/23 History New Prescriptions to Start Prescriptions: Allergies Allergy/AdvReac Type Severity Reaction Status Date / Time lisinopril [LISINOPRIL] AdvReac Unknown COUGH Verified 10/04/23 06:53 Ortho Exam (Inpt) Vital signs and Labs for Last 24 Hours: Temp Pulse Resp BP Pulse Ox O2 Del Method O2 Flow Rate 98.3 F 61 16 136/45 L 3 L Nasal Cannula 3 10/13/23 08:00 10/13/23 08:00 10/13/23 08:00 10/13/23 08:00 10/13/23 10:05 10/13/23 13:00 10/13/23 13:00 I & O for Labs for Last 24 Hours: Intake & Output 10/10/23 10/11/23 10/12/23 10/13/23 23:59 23:59 23:59 23:59 Intake Total 30 / 30 Output Total 0 / 0 500 / 500 Balance 0 30 -470 / -470 Weight 250 lb 249 lb 15.997 oz Additional findings:: Right shoulder in a sling tenderness diffusely around the shoulder with attempted movement. No gross instability of the glenohumeral joint X-rays and CT scan around the shoulder show scapular body fracture there is no intra-articular propagation into the glenoid. Results Labs 10/12/23 12:58 10/12/23 12:58 Labs: H & H 10/12/23 Range/Units 12:58 Hgb 12.8 L (14.1-18.0) g/dL Hct 40.1 L (42.0-52.0) % All other labs normal. Assessment and Plan *Assessment and plan (1) Right scapula fracture: Status: Acute Category: Medical Code(s): S42.101A - Fracture of unspecified part of scapula, right shoulder, initial encounter for closed fracture Plan I reviewed the x-ray CTs findings also talked to the patient and his regarding the findings on the shoulder. There is a significant fracture of the scapular body however does not involve the intra-articular aspect of the glenoid. No operative intervention is necessary. Sling for comfort. Avoid lifting on the right shoulder.
--- NOTE | 2023-10-13 14:31 | PC.NURSE ---
Patient has not voided this shift. Sat at EOB with staff x 2 and attempted to urinate via urinal. Unable to void. Bladder scanner showed greater than [address] Au notified and order received to bladder scan and intermittent cath as needed. Also received order for diet
[2023-10-13] MEDS: LEVODOPA PO ×2 (14:40→20:46)
[2023-10-13] MEDS: CARBIDOPA PO ×2 (14:40→20:46)
[2023-10-13] MEDS: OXYCODONE 5MG IMMEDIATE RELEASE TABLET 5 MG PO ×2 (15:30→23:48)
--- NOTE | 2023-10-13 15:58 | PC.NURSE ---
Patient alert and oriented. VSS. Up with 2 to sit at bedside. Tolerated fair. Patient unable to void so straight cath'd for 650 ml. See notes. Right arm in sling okayed by Dr. Motley. On 3L O2 via nasal cannula. Oxy IR for pain. Minimal oral intake. Fluids infusing per orders. Plan for possible discharge home tomorrow with hospice admission after discharge.
[2023-10-13 16:00] VITALS: BP 114/62; PULSE 64; RESP 19; O2SAT 96
[2023-10-13] MEDS: RIVAROXABAN 15MG TABLET 15 MG PO (18:06)
[2023-10-13 20:00] VITALS: BP 139/88; PULSE 70; RESP 18; TEMP 36.9; O2SAT 96
[2023-10-13] MEDS: MELATONIN 3 MG 2 EACH PO (20:46)
[2023-10-13] MEDS: *PAT OWN MED* ISOSORBIDE MONO 30MG TAB.ER.24H 15 MG PO (20:46)
[2023-10-13] MEDS: *PAT OWN MED* TAMSULOSIN 0.4MG CAPSULE 0.400000000000000022 MG PO (20:46)
[2023-10-13 23:50] VITALS: O2SAT 93
--- NOTE | 2023-10-13 23:50 | PC.NURSE ---
Addendum entered by RT Delilah, CHEMA 10/14/23 00:07: ROOM AIR SAT 87% Pt placed back on 3LNC satting 94% Original Note: ROOM AIR SAT
--- NOTE | 2023-10-14 00:04 | PC.NURSE ---
IVFs INFUSING AT 125ML/HR. HAS DRANK APPROX 240 ML. BLADDER SCAN HIGHEST RADING WAS 264. I/O CATH 250 DARK YELLOW.
[2023-10-14] MEDS: SODIUM CHLORIDE 0.45 % 1,000 ML 125 ML IV ×3 (00:07→09:38)
[2023-10-14 04:00] VITALS: BP 114/68; PULSE 51; RESP 18; TEMP 36.8; O2SAT 96; BMI 36.6
[2023-10-14] MEDS: OXYCODONE 5MG IMMEDIATE RELEASE TABLET 5 MG PO (05:48)
[2023-10-14 07:53] VITALS: BP 111/58; PULSE 61; RESP 19; TEMP 36.7; O2SAT 96
[2023-10-14 08:24] LABS: Basophils % 0.4 % (0.1-2.0); Eosinophils # 0.1 K/mm3 (0.0-0.4); Eosinophils % 2.3 % (0.1-12.0); Hematocrit 32.7 % (42.0-52.0); Hemoglobin 10.4 g/dL (14.1-18.0); Lymphocytes % 15.6 % (10-50); Mean Corpuscular HGB Conc 31.7 g/dL (31.8-35.4); Mean Corpuscular Hemoglobin 29.8 pg (27.0-31.2); Mean Corpuscular Volume 94.1 fl (80-94); Mean Platelet Volume 11.2 fl (7.4-10.4); Monocytes # 0.7 K/mm3 (0.1-1.0); Monocytes % 11.6 % (1.7-9.3); Neutrophils # 4.3 K/mm3 (1.8-7.8); Platelet Count 187 K/mm3 (142-424); Red Blood Count 3.48 M/mm3 (4.60-6.20); Red Cell Distribution Width 14.8 % (11.5-17.5); White Blood Count 6.1 K/mm3 (4.8-10.8)
[2023-10-14] MEDS: LEVODOPA PO (08:32)
[2023-10-14] MEDS: SERTRALINE 100 MG PO (08:32)
[2023-10-14] MEDS: VITAMIN B12 1000 MCG 1 EACH PO (08:32)
[2023-10-14] MEDS: LOSARTAN 100 MG 1 EACH PO (08:32)
[2023-10-14] MEDS: CARVEDILOL 6.25 MG PO (08:32)
[2023-10-14] MEDS: CARBIDOPA PO (08:32)
[2023-10-14] MEDS: VITAMIN D3 50 MCG 1 EACH PO (08:32)
[2023-10-14] MEDS: PREGABALIN 25MG CAPSULE 75 MG PO (08:37)
--- NOTE | 2023-10-14 08:48 | EXP.ACUTE.PN ---
Subjective *Date: 10/14/23 *Time: 10:43 Interval history: Patient had a better night according to his . His pain is under control. A sling was placed yesterday by ortho for comfort but no surgery is necessary. Medical Exam Vital signs and Labs for Last 24 Hours: Vital Signs Temp Pulse Resp BP Pulse Ox O2 Del Method O2 Flow Rate 10/14/23 08:41 Room Air 10/14/23 08:00 Room Air 10/14/23 07:53 98.0 F 61 19 111/58 L 96 Room Air 3 10/14/23 06:28 Nasal Cannula 3 10/14/23 05:00 Nasal Cannula 3 10/14/23 04:00 98.3 F 51 L 18 114/68 96 3 10/14/23 03:00 Room Air 3 10/14/23 01:00 Nasal Cannula 3 10/13/23 23:50 93 L Nasal Cannula 3 10/13/23 23:00 Nasal Cannula 3 10/13/23 21:00 Nasal Cannula 3 10/13/23 20:00 98.4 F 70 18 139/88 96 Nasal Cannula 3 10/13/23 20:00 96 Nasal Cannula 3 10/13/23 18:56 Nasal Cannula 3 10/13/23 17:00 Nasal Cannula 3 10/13/23 16:00 64 19 114/62 96 Nasal Cannula 10/13/23 15:00 Room Air 10/13/23 13:00 Nasal Cannula 3 10/13/23 11:00 Nasal Cannula 3 10/13/23 10:05 3 L Nasal Cannula Intake and Output 10/13/23 10/14/23 10/14/23 19:59 03:59 11:59 Intake Total 1210 / 2676 865 / 2676 601 / 2676 Output Total 650 / 890 240 / 890 Balance 560 / 1786 625 / 1786 601 / 1786 Intake: Intake, Oral Amount 970 / 1210 240 / 1210 Intake, Total IV Amount 240 / 1466 625 / 1466 601 / 1466 Sodium Chloride 0.45 % 1,000 ml 240 / 1466 625 / 1466 601 / 1466 @ 125 mls/hr IV .Q8H [facility] Rx#: [id number] Output: Output, Urine Amount 240 / 240 Output, Urine Amount (Catheter) 650 / 650 Straight 650 / 650 Other: Weight 276 lb Patient Weight 10/14/23 11:59 Weight 276 lb Laboratory Results - last 24 hr 10/14/23 08:05: WBC 6.1, RBC 3.48 L, Hgb 10.4 L, Hct 32.7 L, MCV 94.1 H, MCH 29.8, MCHC 31.7 L, RDW 14.8, Plt Count 187, MPV 11.2 H, Neut % (Auto) 70.0, Lymph % (Auto) 15.6, Page % (Auto) 11.6 H, Eos % (Auto) 2.3, Baso % (Auto) 0.4, Neut # (Auto) 4.3, Lymph # (Auto) 1.0, Page # (Auto) 0.7, Eos # (Auto) 0.1, Baso # (Auto) 0.0 I & O for Labs for Last 24 Hours: Intake & Output 10/11/23 10/12/23 10/13/23 10/14/23 11:59 11:59 11:59 11:59 Intake Total 2676 / 2676 Output Total 500 / 500 890 / 890 Balance -470 / -470 1786 / 1786 Weight 250 lb 249 lb 15.997 oz 276 lb Constitutional: Present no acute distress (sleeping) Respiratory: Present CTA bilaterally Cardiac: Present Reg Rate and Rhythm GI: Present soft and normal bowel sounds; Absent distention or tenderness Extremities: Present other (right arm in a sling); Absent edema, clubbing or cyanosis Skin: Present intact Neuro: Present alert and awake Assessment and Plan *Assessment and plan (1) Acute hypoxemic respiratory failure: Status: Acute Category: Medical Code(s): J96.01 - Acute respiratory failure with hypoxia (2) Right scapula fracture: Status: Acute Category: Medical Code(s): S42.101A - Fracture of unspecified part of scapula, right shoulder, initial encounter for closed fracture (3) Right rib fracture: Status: Acute Category: Medical Code(s): S22.31XA - Fracture of one rib, right side, initial encounter for closed fracture (4) Pathologic fracture of lumbar vertebra: Status: Acute Category: Medical Code(s): M84.48XA - Pathological fracture, other site, initial encounter for fracture (5) Multiple myeloma: Status: Acute Category: Medical Code(s): C90.00 - Multiple myeloma not having achieved remission (6) Multiple lesions of metastatic malignancy: Status: Acute Category: Medical Code(s): C79.9 - Secondary malignant neoplasm of unspecified site (7) Paroxysmal A-fib: Problem Comment: Currently normal sinus rhythm on Eliquis Status: Acute Category: Medical Code(s): I48.0 - Paroxysmal atrial fibrillation (8) Nocturnal hypoxemia: Status: Chronic Category: Medical Code(s): G47.34 - Idiopathic sleep related nonobstructive alveolar hypoventilation (9) ILANA on CPAP: Status: Chronic Category: Medical Code(s): G47.33 - Obstructive sleep apnea (adult) (pediatric); Z99.89 - Dependence on other enabling machines and devices (10) Hypertension: Problem Comment: Normotensive Status: Acute Qualifiers: Hypertension type: unspecified Qualified Code(s): I10 - Essential (primary) hypertension Category: Medical Code(s): I10 - Essential (primary) hypertension (11) Intraparenchymal hemorrhage of brain: Problem Comment: Left hemisphere subcortical hemorrhagic CVA, 09/2020 currently on best medical therapy including and Eliquis, ARB's, statins Status: Acute Category: Medical Code(s): I61.9 - Nontraumatic intracerebral hemorrhage, unspecified Plan Apparently Dr. Dickinson had a conversation with the patient and his family yesterday about his prognosis. He was seen by PT/OT and they felt he would be appropriate for skilled rehab. A sling was placed on the right arm by ortho. Will discuss further care with Dr. Sam.
[2023-10-14 08:53] LABS: Alanine Aminotransferase 5 U/L (12-78); Albumin Level 3.2 g/dl (3.5-5.0); Albumin/Globulin Ratio 1.2 (1.1-1.8); Alkaline Phosphatase 434 U/L (38-126); Anion Gap 10.1 mEq/L (5-15); Aspartate Amino Transferase 24 U/L (17-59); Bilirubin,Total 0.5 mg/dl (0.2-1.3); Blood Urea Nitrogen 53 mg/dl (9-20); Calcium 8.7 mg/dl (8.4-10.2); Carbon Dioxide 26 mmol/L (22.0-30.0); Chloride 106 mmol/L (98-107); Creatinine Clearance Estimated 45 mL/min (50-200); Estimated Glomerular Filt Rate 24 ml/min (>60); GFR (African American) 30 ML/MIN (>60); Globulin 2.6 g/dL (1.3-3.2); Glucose 116 mg/dl (74-100); Potassium 4.1 mmoL/L (3.5-5.1); Sodium 138 mmol/L (136-145); Total Protein,Serum 5.8 g/dl (6.3-8.2)
[2023-10-14 09:49] LABS: Lipase 87 U/L (23-300)
--- NOTE | 2023-10-14 09:52 | PC.NURSE ---
f/c anchored 16F.
--- NOTE | 2023-10-14 19:49 | PC.NURSE ---
[birth year]24 TRANSFERED HOME VIA EMS AMBULANCE. 02 SUPPORT 3/NC. SPOUSE HAS ALL BELONGINGS.
--- NOTE | 2023-10-15 14:47 | CARE MANAGER ---
Contacted patient's related to hospital discharge. They state patient is ok and they have pain medication. Denies questions or concerns.ANU Parmar
--- NOTE | 2023-10-17 22:41 | P.DS_ITS ---
General Admission date:: 10/12/23 Discharge date: 10/14/23 HPI HPI HPI: 73-year-old male with history of metastatic malignancy of unknown, ILANA on CPAP and home oxygen at night, paroxysmal A-fib on Xarelto, hypertension, hyperlipidemia, presenting with right-sided shoulder pain. Patient states that he has fallen a couple times in the past 2 days. He landed on the right side of the shoulder not on an outstretched arm. He did hit his head, no loss of consciousness. Stating that he has mild neck pain, right shoulder and right- sided back pain, but has not ambulated since his fall yesterday. Due to severe pain, called the ambulance and had him brought to the emergency department today. Complaining of 10 out of 10 pain in his right shoulder with movement, minimal at rest. History was obtained via conversation with patient. On arrival, patient hemodynamically stable, alert, oriented x4, appropriate, GCS 15, moving all extremities spontaneously, pupils equal and reactive to light. Full physical exam performed and significant for significant tenderness right upper extremity at shoulder, humerus, elbow. Range of motion limited secondary to pain and swelling. Neurovascular intact right upper extremity otherwise. Patient hypoxemic to 85%, cyanotic, pale when I walked into the room. No respiratory distress. 4 L nasal cannula placed on patient was returned to 95% and 1 in color. Differential includes fracture, sprain, strain, dislocation, pneumothorax, rib fractures, neck fracture, intracranial hemorrhage, among other. Patient was given fentanyl and Toradol IV for symptomatic management and correction of underlying abnormalities. Workup independently interpreted and significant for no leukocytosis, mild anemia 12.8. VBG nonactionable. Patient has CKD with creatinine 2.6 with [place]. Calcium normal 9.5, LFTs normal. Troponin is negative. Noncontrast CT scans significant for widely metastatic, what appears to be multiple myeloma. He has a right sixth rib fracture that is nondisplaced without underlying bony abnormality. He also has a pathologic fracture of his right scapula and transverse process of L1. No intracranial hemorrhage. X-rays of the right upper extremity negative for any acute bony abnormality. See radiology read for full review of final results. Orthopedic consulted regarding right scapular fracture treatment options Hospital Course Hospital Course Hospital Course: The patient cervical spine CT showed multiple new and worsening lytic foci consistent with metastatic disease. His abdomen and pelvic CT showed worsening bony masses consistent with metastatic disease. There were multiple hepatic masses as well. The chest CT showed a right lateral 6 nondisplaced rib fracture and there was also a nondisplaced fracture of the right scapular bone. There was a pathologic fracture of the L1 transverse process. Orthopedics was consulted for the patient's right scapular fracture. He was placed on oxygen and had satisfactory oxygen sats while on the oxygen. Care management spoke with Dr. Hickman and he had a discussion with the patient and his family about test results. The patient was also seen by orthopedics. It was felt that the fracture did not require operative intervention and a sling was applied for comfort. Dr. Motley wanted the patient to avoid lifting with the right shoulder. By 10/14/2023, the patient had a better night and his pain was under control. He was seen by PT and OT and they felt he would be most appropriate for skilled rehab. The patient's family decided to take him home with hospice after speaking with Dr. Hickman. He was stable to be discharged and will be followed by hospice. Exam Data for Last 24 hours Vital signs and Labs for Last 24 Hours: Temp Pulse Resp BP Pulse Ox O2 Del Method O2 Flow Rate 98.0 F 61 19 111/58 L 96 Room Air 3 10/14/23 07:53 10/14/23 07:53 10/14/23 07:53 10/14/23 07:53 10/14/23 07:53 10/14/23 09:55 10/14/23 07:53 I & O for Last 24 hours: Intake & Output 10/15/23 10/16/23 10/17/23 10/18/23 11:59 11:59 11:59 11:59 Intake Total 480 / 480 Balance 480 / 480 Narrative: Constitutional Constitutional: no acute distress *Routine HEENT Exam Head: Present normocephalic and atraumatic Eye: Present EOMI and PERRL ENT: Present mucous membranes dry *Routine Neck Exam Neck: Present supple and full ROM *Routine Respiratory Exam Respiratory: Present CTA bilaterally *Routine Cardiovascular Exam Cardiovascular: Present RRR *Routine Abdominal Exam Abdominal: Present soft and normoactive bowel sounds; Absent tenderness *Routine Rectal Exam Rectal:: deferred *Routine Genitalia Exam Genitalia:: deferred *Routine Extremities Exam Extremities: Absent cyanosis, clubbing or edema Comments: pain in right shoulder with movement *Routine Skin Exam Skin: Present intact; Absent erythema *Routine Neurological Exam Neurological: Present alert and oriented X3 DS: Diagnosis Discharge Diagnosis (1) Acute hypoxemic respiratory failure: Status: Acute Code(s): J96.01 - Acute respiratory failure with hypoxia (2) Right scapula fracture: Status: Acute Code(s): S42.101A - Fracture of unspecified part of scapula, right shoulder, initial encounter for closed fracture (3) Right rib fracture: Status: Acute Code(s): S22.31XA - Fracture of one rib, right side, initial encounter for closed fracture (4) Pathologic fracture of lumbar vertebra: Status: Acute Code(s): M84.48XA - Pathological fracture, other site, initial encounter for fracture (5) Multiple myeloma: Status: Acute Code(s): C90.00 - Multiple myeloma not having achieved remission (6) Multiple lesions of metastatic malignancy: Status: Acute Code(s): C79.9 - Secondary malignant neoplasm of unspecified site (7) Paroxysmal A-fib: Status: Acute Code(s): I48.0 - Paroxysmal atrial fibrillation Problem details: Currently normal sinus rhythm on Eliquis (8) Nocturnal hypoxemia: Status: Chronic Code(s): G47.34 - Idiopathic sleep related nonobstructive alveolar hypoventilation (9) ILANA on CPAP: Status: Chronic Code(s): G47.33 - Obstructive sleep apnea (adult) (pediatric); Z99.89 - Dependence on other enabling machines and devices (10) Hypertension: Status: Acute Code(s): I10 - Essential (primary) hypertension Qualifiers: Hypertension type: unspecified Qualified Code(s): I10 - Essential (primary) hypertension Problem details: Normotensive (11) Intraparenchymal hemorrhage of brain: Status: Acute Code(s): I61.9 - Nontraumatic intracerebral hemorrhage, unspecified Problem details: Left hemisphere subcortical hemorrhagic CVA, 09/2020 currently on best medical therapy including and Eliquis, ARB's, statins Meds Home Medications and Allergies Home Medications Medication Instructions Recorded Confirmed Type montelukast 10 mg tablet 10 mg PO QPM 05/22/19 10/12/23 History pregabalin 75 mg capsule (Lyrica) 75 mg PO BID 05/22/19 10/12/23 History carbidopa 25 mg-levodopa 100 mg 1 tab PO TID 03/31/22 10/13/23 History tablet cholecalciferol (vitamin D3) 50 50 mcg PO DAILY 03/31/22 10/12/23 History mcg (2,000 unit) capsule cyanocobalamin (vitamin B-12) 1,000 mcg PO DAILY 03/31/22 10/12/23 History 1,000 mcg tablet isosorbide mononitrate 30 mg 30 mg PO DAILY 03/31/22 10/13/23 History tablet,extended release 24 hr losartan 100 mg tablet 100 mg PO DAILY 03/31/22 10/12/23 History rivaroxaban 20 mg tablet (Xarelto) 20 mg PO DAILY 03/31/22 10/12/23 History tamsulosin 0.4 mg capsule 0.4 mg PO HS 03/31/22 10/12/23 History naproxen 500 mg tablet 500 mg PO BID PRN pain #10 tabs 08/30/23 10/12/23 Rx colchicine 0.6 mg tablet 0.6 mg PO BID 09/21/23 10/12/23 History dapagliflozin propanediol 10 mg 10 mg PO DAILY 10/01/23 10/12/23 History tablet (Farxiga) atorvastatin 20 mg tablet 20 mg PO DAILY 10/13/23 10/13/23 History carvedilol 6.25 mg tablet 6.25 mg PO BID 10/13/23 10/13/23 History furosemide 20 mg tablet 20 mg PO DAILY 10/13/23 10/13/23 History melatonin 3 mg tablet 6 mg PO HS 10/13/23 10/13/23 History metformin 500 mg tablet 250 mg PO BID 10/13/23 10/13/23 History nifedipine 60 mg tablet,extended 60 mg PO DAILY 10/13/23 10/13/23 History release oxycodone 5 mg tablet 5 - 10 mg PO Q6 PRN Pain 10/13/23 10/13/23 History sertraline 100 mg tablet 100 mg PO DAILY 10/13/23 10/13/23 History oxycodone 5 mg tablet 10 mg (2 x 5 mg) PO Q6HP PRN 10/14/23 Rx Moderate Pain (4-6) #60 tabs New Prescriptions to Start Prescriptions: Danis Ritchie Allergies Allergy/AdvReac Type Severity Reaction Status Date / Time lisinopril [LISINOPRIL] AdvReac Unknown COUGH Verified 10/04/23 06:53 Discharge Plan Disposition Patient Disposition: Home, Self-Care Follow up Plan Prescriptions/Medication Reconciliation: New oxycodone 5 mg Tablet 10 mg PO Q6HP PRN (Reason: Moderate Pain (4-6)) Qty: 60 0RF Continued tamsulosin 0.4 mg capsule 0.4 mg PO HS cholecalciferol (vitamin D3) 50 mcg (2,000 unit) capsule 50 mcg PO DAILY isosorbide mononitrate 30 mg tablet extended release 24 hr 30 mg PO DAILY carbidopa-levodopa 25-100 mg tablet 1 tab PO TID Xarelto 20 mg tablet 20 mg PO DAILY Rx Instructions: must administer with evening meal losartan 100 mg tablet 100 mg PO DAILY cyanocobalamin (vitamin B-12) 1,000 mcg tablet 1,000 mcg PO DAILY Patient Comments: TAKE ONE TABLET BY MOUTH EVERY DAY colchicine 0.6 mg tablet 0.6 mg PO BID montelukast 10 mg tablet 10 mg PO QPM pregabalin [Lyrica] 75 mg capsule 75 mg PO BID naproxen 500 mg tablet 500 mg PO BID PRN (Reason: pain) Qty: 10 0RF dapagliflozin propanediol [Farxiga] 10 mg Tablet 10 mg PO DAILY metformin 500 mg tablet 250 mg PO BID Patient Comments: TAKE 1/2 TABLET BY MOUTH TWICE DAILY carvedilol 6.25 mg tablet 6.25 mg PO BID Patient Comments: TAKE ONE TABLET BY MOUTH TWICE DAILY atorvastatin 20 mg tablet 20 mg PO DAILY Patient Comments: TAKE ONE TABLET BY MOUTH ONCE DAILY sertraline 100 mg tablet 100 mg PO DAILY Patient Comments: TAKE ONE TABLET BY MOUTH EVERY DAY melatonin 3 mg tablet 6 mg PO HS Patient Comments: TAKE TWO TABLETS BY MOUTH EVERY DAY AT BEDTIME furosemide 20 mg tablet 20 mg PO DAILY Patient Comments: TAKE ONE TABLET BY MOUTH EVERY DAY nifedipine 60 mg tablet extended release 60 mg PO DAILY Patient Comments: TAKE ONE TABLET BY MOUTH EVERY DAY oxycodone 5 mg tablet 5 - 10 mg PO Q6 PRN (Reason: Pain) Patient Comments: TAKE 1 TO 2 TABLET(S) BY MOUTH EVERY 6 HOURS NEEDED FOR PAIN MAY CAUSE DROWSINESS Problem Reconciliation Problems Reviewed?: Yes Patient Discharge Instructions ACTIVITY: Limited activity DIET: advance to your usual diet Providers Primary Care Provider: Danis Sam Admit Provider: Sumit Smith Attending Provider: Danis Sam
== END 2023-10-14 19:25 | disposition home or self-care (01) ==
LOC: ER 15:41 → 2ND 18:31
PROVIDERS: Admitting Provider Internal Medicine Adolescent Medicine; Emergency Provider Emergency Medicine; PCP Family Medicine; Visit Provider Family Medicine
DX: J96.01 Acute respiratory failure with hypoxia (principal); S42.101A Fracture of unspecified part of scapula, right shoulder, initial encounter for closed fracture; S22.31XA Fracture of one rib, right side, initial encounter for closed fracture; M84.48XA Pathological fracture, other site, initial encounter for fracture; C90.00 Multiple myeloma not having achieved remission; I48.0 Paroxysmal atrial fibrillation; G47.34 Idiopathic sleep related nonobstructive alveolar hypoventilation; G47.33 Obstructive sleep apnea (adult) (pediatric); I10 Essential (primary) hypertension; R29.6 Repeated falls; Z99.81 Dependence on supplemental oxygen; Z79.01 Long term (current) use of anticoagulants; Z79.899 Other long term (current) drug therapy; Z86.73 Personal history of transient ischemic attack (TIA), and cerebral infarction without residual deficits
CPT/HCPCS: 36415; 70450; 71045; 71250; 72125; 72128; 72131; 73030; 73060; 73080; 74176; 80053; 82803; 83605; 83690; 84484; 85025; 94761; 97163; 97166; 99291; G0378